=== PATIENT | female | born 1950 | race Caucasian/White ===

== ENCOUNTER 2019-02-12 05:45 | Inpatient (IN) | payer MEDICARE, OTHER ==
[~2019-02-12 05:45] MED LIST: Buffered Lidocaine 1% SYRIN* 1 ML/SYRINGE INTRADERM ONE
--- OUTSIDE RECORDS SUMMARY | 2019-02-12 05:49 | XMS REPORT | Continuity of Care Document ---
:1950 External Reference #:[id number] Author Name iLz Powell N.P. 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 Problems Provider Date Factor V Leiden mutation Andres Hui M.D.,FACP Onset: 01/20/2016 Benign essential hypertension Argentina Simental M.D., FACP Onset: 05/31/2010 Type 2 diabetes mellitus Argentina Simental M.D., FACP Onset: 08/06/2011 Hyperlipidemia Argentina Simental M.D., FACP Onset: 05/31/2010 Hypothyroidism Argentina Simental M.D., FACP Onset: 05/31/2010 Hereditary spherocytosis Argentina Simental M.D., FACP Onset: 05/31/2010 Malignant tumor of thyroid gland Argentina Simental M.D., FACP Onset: 07/03/2010 Social History Type Date Description Comments Sex Unknown Tobacco Use Start: Unknown Never Smoked Cigarettes ETOH Use Rarely consumes alcohol Tobacco Use Start: Unknown Patient has never smoked Recreational Drug Use Denies Drug Use Smoking Status Reviewed: 02/02/19 Patient has never smoked Exercise Type/Frequency Exercises sporadically Limited by back pain Allergies, Adverse Reactions, Alerts Active Allergies Reaction Severity Comments Date NKDA 12/08/2018 Heparin BLOOD CLOTS Moderate 05/23/2010 Sutures VICRIL WONT HEAL Severe 05/23/2010 Medications Active Medications SIG Qnty Indications Ordering Date Provider Tlso Brace When out of bed Vassilios 12/24/2018 after surgery MD Irene Tramadol HCL 1 tablet four 120tabs Misael Delaney NP 08/09/2018 50mg Tablets times daily as needed pain Cyclobenzaprine HCL 1 by mouth 90tabs Liz Sehrry, 07/22/2018 5mg every 8 hours N.P. Tablets as needed muscle spasms Metaxalone take 1 tablet 3 90tabs Misael Delaney NP 05/29/2018 800mg Tablets times a day as needed Irbesartan Take One Tablet 90tabs I10 Liz Sherry, 10/18/2017 75mg Tablets By Mouth Every N.P. Morning Simvastatin take 1 tablet 90tabs E78.00 Liz Sherry, 07/03/2017 40mg Tablets at bedtime N.P. Flector apply 1 patch 60units M54.5 Liz Moraesana, 09/27/2016 1.3% Patches twice a day N.P. Zolpidem Tartrate ER take one tablet 30tabs G47.00 Liz Sherry, 2016 6.25mg by mouth at N.P. Tablets ER bedtime as needed for sleep; maximum daily dose = 1 Voltaren apply to 500gm Liz Moraesana, 05/10/2016 1% Gel affected area N.P. four times daily Warfarin Sodium Take Two 180tabs Liz Moraesana, 07/27/2014 4mg Tablets Tablets By N.P. Mouth Every Day Or as Directed Nasonex 2 sprays to 1units 786.2 Argentina Simetnal, 01/28/2012 50mcg/Act each nostril M.D., FACP Suspension once daily prn Venlafaxine HCL ER Take One 90caps Liz Sherry, 10/10/2010 150mg Capsule By N.P. Caps ER 24HR Mouth Every Day Vit D qd Unknown 1000Iu Calcium 1 po 60tabs Unknown 500 Tablets Synthroid 1 by mouth Rahat Goldberg MD 200mcg Tablets every day Magnesium 1 by mouth Unknown 400mg Tablets every day Multivitamin Adult 1 by mouth Unknown Tablets every day Folic Acid Take One Tablet 90tabs Liz Varn, 1mg Tablets By Mouth Every N.P. Day Immunizations CPT Code Status Date Vaccine Reaction Lot # [id number] Given 12/28/2018 Influenza Virus Vaccine, Quadrivalent, Split, Preservative Free 71435 Given 10/01/2017 Tetanus And Diptheria (Td) No immediate a110a For Adult Use Preservative reaction..jh Free 86657 Given 02/05/2017 Influenza Virus Vaccine, Quadrivalent, Split, Preservative Free 68181 Given 09/27/2016 Pneumonia Vaccine no immediate reaction [id number] noted .... hh Q2038 Given 12/26/2015 Fluzone Vaccine 01652 Given 11/23/2014 Pneumococcal Conjugate [id number] Vaccine 13 Valent For Intramuscular Use Q2037 Given 12/01/2011 Fluvirin Im 3Yrs And Older 21993 Given 12/29/2008 Zoster (Zostavax) 93937 Given 10/27/2007 Tdap - Tetanus/Diptheria/Acellular Pertussis 34835 Given 10/27/2007 Tdap - Tetanus/Diptheria/Acellular Pertussis 70598 Given 01/09/2007 Influenza Virus 3Yrs & Over 57311 Given 01/09/2007 Influenza Virus 3Yrs & Over Vital Signs Date Vital Result Comment 02/02/2019 3:40pm Height 60 inches 5'0" Weight 182.00 lb Heart Rate 90 /min BP Systolic Sitting 124 mmHg BP Diastolic Sitting 79 mmHg O2 % BldC Oximetry 98 % BMI (Body Mass Index) 35.5 kg/m2 12/24/2018 2:00pm Height 60 inches 5'0" Weight 180.00 lb BP Systolic 124 mmHg BP Diastolic 76 mmHg Pain Level 3 BMI (Body Mass Index) 35.1 kg/m2 Results Test Acquired Facility Test Result H/L Range Note Date Laboratory test 12/12/2018 [facility] Vitamin B12 406 pg/mL Normal 180-914 [address] [place] [address] [phone] Protein 12/12/2018 [facility] Total 6.3 g/dL 6.3 - 7.[address] Protein([place] [address] ) [phone] Albumin 3.2 g/dL Abnormal 3.4-4.7 Alpha-1 Globulin 0.3 g/dL 0.1-0.3 Alpha-2 Globulin 1.1 g/dL Abnormal 0.6-1.0 Beta Globulin 1.1 g/dL 0.7-1.2 Gamma Globulin 0.7 g/dL 0.6-1.6 Albumin/Globulin Ratio 1.01 Impression See Comment 2 Laboratory test 12/12/2018 [facility] TSH (Thyroid 0.01 Low 0.34-5.[address] Stim Horm) mcIU/[place] [address] [phone] Hemoglobin A1c (Glyco HGB) 5.7 % High 4.0-5.6 3 Laboratory test 12/12/2018 [facility] RBC Folic See Comment [address] [place] [address] [phone] CBC Auto Diff 10/03/2018 [facility] White Blood 8.8 10^3/uL Normal 3.5-[address] Count 0.8 [place] [address] [phone] Red Blood Count 4.33 10^6/uL Normal 3.70-4.87 Hemoglobin 13.8 g/dL Normal 12.0-16.0 Hematocrit 39 % Normal 35-47 Mean Corpuscular Volume 90 fL Normal 80-97 Mean Corpuscular Hemoglobin 32 pg High 27-31 Mean Corpuscular HGB Conc 36 g/dL Normal 31-36 Red Cell Distribution Width 14 % Normal 10-15 Platelet Count 364 10^3/uL Normal 150-450 Mean Platelet Volume 9.2 fL Normal 7.4-10.4 Abs Neutrophils 5.3 10^3/uL Normal 1.5-7.7 Abs Lymphocytes 2.2 10^3/uL Normal 1.0-4.8 Abs Monocytes 1.0 10^3/uL High 0-0.8 Abs Eosinophils 0.2 10^3/uL Normal 0-0.6 Abs Basophils 0.1 10^3/uL Normal 0-0.2 Abs Nucleated RBC 0.0 10^3/uL Granulocyte % 60.2 % Lymphocyte % 25.1 % Monocyte % 11.2 % Eosinophil % 2.4 % Basophil % 1.1 % Nucleated Red Blood Cells % 0.1 Inr/Protime 10/03/2018 [facility] Inr 3.63 High 0.82-1.[address] [place] [address] [phone] Comp Metabolic 10/03/2018 [facility] Sodium 137 mmol/L Normal 135-145 Panel [address] [place] [address] [phone] Chloride 107 mmol/L Normal 101-111 Co2 Carbon Dioxide 23 mmol/L Normal 22-32 Glucose 106 mg/dL High 70-100 Blood Urea Nitrogen 20 mg/dL Normal 6-24 Creatinine 0.67 mg/dL Normal 0.51-0.95 BUN/Creatinine Ratio 29.9 High 8-20 Calcium 8.2 mg/dL Low 8.6-10.3 Total Protein 6.3 g/dL Low 6.4-8.9 Albumin 3.9 g/dL Normal 3.2-5.2 Globulin 2.4 g/dL Normal 2-4 Albumin/Globulin Ratio 1.6 Normal 1-3 Total Bilirubin 0.20 mg/dL Normal 0.2-1.0 Alkaline Phosphatase 106 U/L High 34-104 Alt 27 U/L Normal 7-52 Egfr Non- 87.0 >60 Egfr 105.3 >60 6 Potassium TNP mmol/L 3.5-5.0 7 Anion Gap 7 mmol/L Normal 2-11 Ast TNP U/L 13-39 8 1 Normal Range 180 to 914 Indeterminate Range 145 to 180 Deficient Range <145 2 RESULT: No apparent monoclonal protein on serum electrophoresis. Test Performed by: [facility] [address] [id number] Pulverizer Feeder: Joaquin Lee M.D. Ph.D.; CLIA# [id number] 3 Therapeutic target for the treatment of diabetes mellitus patients is <7% HBA1C, and in selective patients <6.0%. Please refer to [place] [employer] Association diabetic care guidelines for further information. 4 TESTS RESULT FLAG UNITS REFERENCE INTERVAL Folate, RBC Folate, Hemolysate 472.7 ng/mL Not Estab. Hematocrit 39.8 % No patient age and/or gender provided or "N" placed in gender box Age Male Female 0 - 7 days 31.9 - 57.2 31.9 - 57.2 8 - 30 days 30.7 - 53.7 30.7 - 53.7 31 - 90 days 26.6 - 41.0 26.6 - 41.0 91 days - 11 months 31.0 - 41.0 31.0 - 41.0 1 - 7 years 32.4 - 43.3 32.4 - 43.3 8 - 12 years 34.8 - 45.8 34.8 - 45.8 >12 years 37.5 - 51.0 34.0 - 46.6 Folate, RBC 1188 ng/mL >498 Test Report Date: 12/14/[address] [facility] [address] [address] Dir: Teressa Lovell MD For inquiries, the physician may contact Branch: [phone] Lab: [phone] 5 Standard intensity warfarin therapeutic range: 2.0-3.0 High intensity warfarin therapeutic range: 2.5-3.5 6 Because ethnic data is not always readily available, this report includes an eGFR for both -Americans and non- Americans. The National Kidney Disease Education Program (NKDEP) does not endorse the use of the MDRD equation for patients that are not between the ages of 18 and 70, are , have extremes of body size, muscle mass, or nutritional status, or are non- or non-. According to the National Kidney Foundation, irrespective of diagnosis, the stage of the disease is based on the level of kidney function: Stage Description GFR(mL/min/1.73 m(2)) 1 Kidney damage with normal or decreased GFR 90 2 Kidney damage with mild decrease in GFR 60-89 3 Moderate decrease in GFR 30-59 4 Severe decrease in GFR 15-29 5 Kidney failure <15 (or dialysis) 7 Specimen Hemolyzed. Result may not be valid. Unable to report test result due to hemolysis. 8 Unable to report test result due to hemolysis. Procedures Date Code Description Status 02/02/2019 14367 EKG Tracing & Interpretation Completed 07/14/2018 [id number] Bone Mineral Density Test Completed 06/13/2018 [id number] Mammogram Completed 11/11/2017 [id number] Mammogram Completed 07/27/2017 [id number] Diabetic Retinal Eye Exam Completed 11/06/2016 [id number] Mammogram Completed 07/27/2015 [id number] Mammogram Completed 12/20/2014 [id number] Mammogram Completed 12/14/2014 [id number] Mammogram Completed 12/10/2013 [id number] Mammogram Completed 12/02/2012 [id number] Mammogram Completed 12/02/2012 [id number] Bone Mineral Density Test Completed 05/30/2012 [id number] Mammogram Completed 10/31/2011 [id number] Mammogram Completed 05/30/2010 [id number] Mammogram Completed 10/28/2008 [id number] Mammogram Completed 10/30/2007 [id number] Bone Mineral Density Test Completed Medical Devices Description No Information Available Encounters Type Date Location Provider Dx Diagnosis Office Visit 12/08/2018 [facility] Hussein Trniidad, E11.40 Type 2 diabetes 11:15a [facility] mellitus with diabetic neuropathy, unsp M48.062 Spinal stenosis, lumbar region with neurogenic claudication G56.01 Carpal tunnel syndrome, right upper limb Assessments Date Code Description Provider 02/02/2019 Z01.818 Encounter for other preprocedural Liz Varn, N.P. examination 02/02/2019 M48.062 Spinal stenosis, lumbar region with Liz Varn, N.P. neurogenic claudication 02/02/2019 E11.40 Type 2 diabetes mellitus with diabetic Liz Varn, N.P. neuropathy, unspecified 02/02/2019 I10 Essential (primary) hypertension Liz Varn, N.P. 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 factors 02/02/2019 E03.9 Hypothyroidism, unspecified Liz Varn, N.P. 01/22/2019 M48.062 Spinal stenosis, lumbar region with Jil Bonilla MD neurogenic claudication 01/22/2019 M47.896 Other spondylosis, lumbar region Jil Bonilla MD 01/22/2019 M43.16 Spondylolisthesis, lumbar region Jil Bonilla MD 12/24/2018 M48.062 Spinal stenosis, lumbar region with Jil Bonilla MD neurogenic claudication 12/24/2018 M47.896 Other spondylosis, lumbar region Jil Bonilla MD 12/24/2018 M43.16 Spondylolisthesis, lumbar region Jil Bonilla MD 12/08/2018 E11.40 Type 2 diabetes mellitus with diabetic Hussein Trinidad MD neuropathy, unspecified 12/08/2018 M48.062 Spinal stenosis, lumbar region with Hussein Trinidad MD neurogenic claudication 12/08/2018 G56.01 Carpal tunnel syndrome, right upper limb Hussein Trinidad MD Plan of Treatment Future Appointment(s):05/18/2019 1:30 pm - MARIJA Bailon at [facility]03/16/2019 1:00 pm - MARIJA Bailon at [facility]02/23/2019 1:30 pm - MARIJA Bailon at [facility] 7:30 am - MARIJA Bailon at [facility]02/12/2019 7:30 am - Jil Bonilla MD at [facility]06/16/2019 10: 45 am - Hussein Trinidad MD at [facility] Pujvms8602/02/2019 - Liz Powell N.P.Z01.818 Encounter for other preprocedural examinationComments:I am ordering some routine preoperative lab work. The office will contact you with your results. Please follow with Dr Collado regarding your anticoagulation.M48.062 Spinal stenosis, lumbar region with neurogenic hftkjgeofcbbT47.40 Type 2 diabetes mellitus with diabetic neuropathy, oizxfyalpfcW00 Essential (primary) vltsjkksnftrA89.2 Hereditary deficiency of other clotting tenjpixC22.9 Hypothyroidism, unspecified Functional Status Description No Information Available Mental Status Description No Information Available Referrals Description No Information Available
--- OUTSIDE RECORDS SUMMARY | 2019-02-12 05:49 | XMS REPORT | Continuity of Care Document ---
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 Tablets [...] daily Warfarin Sodium Take Two 180tabs Liz Sherry, 07/27/2014 4mg Tablets Tablets By N.P. Mouth Every Day Or as Directed Nasonex 2 sprays to 1units 786.2 Argentina Simental, 01/28/2012 50mcg/Act each nostril M.DJorge, FACP Suspension once daily prn Venlafaxine HCL [...] Code Status Date Vaccine Reaction Lot # [id number] Given 12/28/2018 Influenza Virus Vaccine, Quadrivalent, Split, Preservative Free 98071 Given 10/01/2017 Tetanus And Diptheria (Td) No immediate a110a For Adult Use Preservative reaction..jh Free 01410 Given 02/05/2017 Influenza Virus Vaccine, Quadrivalent, Split, Preservative Free 47080 Given 09/27/2016 Pneumonia Vaccine no immediate reaction [id number] noted .... hh Q2038 Given 12/26/2015 Fluzone Vaccine 20238 Given 11/23/2014 Pneumococcal Conjugate [id number] Vaccine 13 Valent For Intramuscular Use Q2037 Given 12/01/2011 Fluvirin Im 3Yrs And Older 88698 Given 12/29/2008 Zoster (Zostavax) 46002 Given 10/27/2007 Tdap - Tetanus/Diptheria/Acellular Pertussis 89083 Given 10/27/2007 Tdap - Tetanus/Diptheria/Acellular Pertussis 65859 Given 01/09/2007 Influenza Virus 3Yrs & Over 90643 Given 01/09/2007 Influenza Virus 3Yrs & Over Vital Signs Date Vital Result Comment 02/06/2019 3:18pm Height 62 inches 5'2" Weight 190.00 lb Heart Rate 84 /min BP Systolic 160 mmHg BP Diastolic 80 mmHg BMI (Body Mass Index) 34.7 kg/m2 02/02/2019 3:40pm Height 60 inches 5'0" Weight 182.00 lb Heart Rate 90 /min BP Systolic Sitting 124 mmHg BP Diastolic Sitting 79 mmHg O2 % BldC Oximetry 98 % BMI (Body Mass Index) 35.5 kg/m2 Results Test Acquired Date Facility Test Result H/L Range Note CBC Auto 02/03/2019 [facility] White Blood 9.3 10^3/uL Normal 3.5-10.[address] [place] [address] [phone] Red Blood Count 4.49 10^6/uL Normal 3.70-4.87 Hemoglobin 14.0 g/dL Normal 12.0-16.0 Hematocrit 40 % Normal 35-47 Mean Corpuscular Volume 90 fL Normal 80-97 Mean Corpuscular Hemoglobin 31 pg Normal 27-31 Mean Corpuscular HGB Conc 35 g/dL Normal 31-36 Red Cell Distribution Width 15 % Normal 10-15 Platelet Count 351 10^3/uL Normal 150-450 Mean Platelet Volume 10.3 fL Normal 7.4-10.4 Abs Neutrophils 5.6 10^3/uL Normal 1.5-7.7 Abs Lymphocytes 2.5 10^3/uL Normal 1.0-4.8 Abs Monocytes 0.9 10^3/uL High 0-0.8 Abs Eosinophils 0.3 10^3/uL Normal 0-0.6 Abs Basophils 0.1 10^3/uL Normal 0-0.2 Abs Nucleated RBC 0.0 10^3/uL Granulocyte % 59.9 % Lymphocyte % 26.5 % Monocyte % 9.2 % Eosinophil % 3.2 % Basophil % 1.2 % Nucleated Red Blood Cells % 0.2 Comp Metabolic 02/03/2019 [facility] Sodium 140 mmol/L Normal 135-[address] [place] [address] [phone] Potassium 4.6 mmol/L Normal 3.5-5.0 Chloride 104 mmol/L Normal 101-111 Co2 Carbon Dioxide 30 mmol/L Normal 22-32 Anion Gap 6 mmol/L Normal 2-11 Glucose 80 mg/dL Normal 70-100 Blood Urea Nitrogen 15 mg/dL Normal 6-24 Creatinine 0.67 mg/dL Normal 0.51-0.95 BUN/Creatinine Ratio 22.4 High 8-20 Calcium 9.0 mg/dL Normal 8.6-10.3 Total Protein 6.4 g/dL Normal 6.4-8.9 Albumin 4.1 g/dL Normal 3.2-5.2 Globulin 2.3 g/dL Normal 2-4 Albumin/Globulin Ratio 1.8 Normal 1-3 Total Bilirubin 0.30 mg/dL Normal 0.2-1.0 Alkaline Phosphatase 101 U/L Normal 34-104 Alt 18 U/L Normal 7-52 Ast 19 U/L Normal 13-39 Egfr Non- 87.0 >60 Egfr 105.3 >60 1 Urine Microalbumin 02/03/2019 [facility] Ur Microalbumin 113.3 mg/L Random [address] (mg/L) [place] [address] [phone] Urine Creatinine 51.21 mg/dL Urine Microalbumin/Creatinine 221.2 High <31 Urinalysis Profile 02/03/2019 [facility] Urine Color Yellow [address] [place], [place] [address] [phone] Urine Appearance Cloudy Urine Specific [place] 1.015 Normal 1.010-1.030 Urine pH 6.0 Normal 5-9 Urine Urobilinogen Negative Negative Urine Ketones Negative Negative Urine Protein Negative Negative Urine Leukocytes 1+ Abnormal Negative Urine Blood 2+ Abnormal Negative Urine Nitrite Negative Negative Urine Bilirubin Negative Negative Urine Glucose Negative Negative Urine White Blood Cell 3+(>20/hpf) Abnormal Absent Urine Red Blood Cell 3+(>10/hpf) Abnormal Absent Urine Bacteria Absent Absent Urine Squamous Epithelial Cell Present Abnormal Absent Urine Culture And 02/03/2019 [facility] Urine SEE RESULT [address] Culture BELOW [place], [place] [address] [phone] Laboratory test 12/12/2018 [facility] Vitamin B12 406 pg/mL Normal 180- [address] [place], [place] [address] [phone] Protein 12/12/2018 [facility] Total 6.3 g/dL 6.[address] Protein([place]) [place] [address] 7.9 [phone] Albumin 3.2 g/dL Abnormal 3.4-4.7 Alpha-1 Globulin 0.3 g/dL 0.1-0.3 Alpha-2 Globulin 1.1 g/dL Abnormal 0.6-1.0 Beta Globulin 1.1 g/dL 0.7-1.2 Gamma Globulin 0.7 g/dL 0.6-1.6 Albumin/Globulin Ratio 1.01 Impression See Comment 4 Laboratory test 12/12/2018 [facility] TSH (Thyroid 0.01 Low 0.34-5.[address] Stim Horm) mcIU/mL [place], [place] [address] [phone] Hemoglobin A1c (Glyco HGB) 5.7 % High 4.0-5.6 5 Laboratory test 12/12/2018 [facility] RBC Folic See Comment [address] [place] [address] [phone] CBC Auto Diff 10/03/2018 [facility] White Blood 8.8 10^3/uL Normal 3.5-[address] Count 0.8 [place] [address] [phone] Red Blood Count 4.33 10^6/uL Normal 3.70-4.87 [...] Red Blood Cells % 0.1 Inr/Protime 10/03/2018 [facility] Inr 3.63 High 0.82-1.[address] [place] [address] [phone] Comp Metabolic 10/03/2018 [facility] Sodium 137 mmol/L Normal 135-145 Panel [address] [place] [address] [phone] Chloride 107 mmol/L Normal 101-111 Co2 Carbon [...] Egfr Non- 87.0 >60 Egfr 105.3 >60 8 Potassium TNP mmol/L 3.5-5.0 9 Anion Gap 7 mmol/L Normal 2-11 Ast TNP U/L 13-39 10 1 Because ethnic data is not always readily [...] 15-29 5 Kidney failure <15 (or dialysis) 2 SEE RESULT BELOW Name: XIN KERNS : [address]: Liz Powell NP Acct: [id number] Unit: [id number] AGE: 68 Location: LAB Re02/03/19 SEX: F Status: REG REF SPEC: [id number] DARRYL: 02/03/19-[address]: Liz Powell NP REQ: [id number] RECD: 02/03/19979 STATUS:COMP _ SOURCE: URINE SPDESC: ORDERED: Urine Culture Procedure Result Reported Site Urine Culture Final 02/04/19- 1237 ML No Growth (<1,000 CFU/mL) * ML - Main Lab . END OF REPORT DEPARTMENT OF PATHOLOGY, [address] [place] [address] Baltazar Goodrich M.D. Director IA # [id number] 3 Normal Range 180 to 914 Indeterminate Range 145 to 180 Deficient Range <145 4 RESULT: No apparent monoclonal protein on serum electrophoresis. Test Performed by: [facility] [place] [address] Artificial Plastic Eye Maker: Joaquin Lee M.D. Ph.D.; CLIA# [id number] 5 Therapeutic target for the treatment of diabetes mellitus patients is <7% HBA1C, and in selective patients <6.0%. Please refer to [place] Diabetes Association diabetic care guidelines for further information. 6 TESTS RESULT FLAG UNITS REFERENCE INTERVAL Folate, [...] ng/mL >498 Test Report Date: 12/14/[address] [facility] [address] [address] Dir: Teressa Lovell MD For inquiries, the physician may contact Branch: [phone] Lab: [phone] 7 Standard intensity warfarin therapeutic range: 2.0-3.0 High intensity warfarin therapeutic range: 2.5-3.5 8 Because ethnic data is not always readily [...] 15-29 5 Kidney failure <15 (or dialysis) 9 Specimen Hemolyzed. Result may not be valid. Unable to report test result due to hemolysis. 10 Unable to report test result due to hemolysis. Procedures Date Code Description Status 02/02/2019 55674 EKG Tracing & Interpretation Completed 07/14/2018 [id number] Bone Mineral Density Test Completed 06/13/2018 [id number] Mammogram Completed 11/11/2017 [id number] Mammogram Completed 07/27/2017 [id number] Diabetic Retinal Eye Exam Completed 11/06/2016 [id number] Mammogram Completed 07/27/2015 [id number] Mammogram Completed 12/20/2014 [id number] Mammogram Completed 12/14/2014 [id number] Mammogram Completed 12/10/2013 [id number] Mammogram Completed 12/02/2012 [id number] Mammogram Completed 12/02/2012 [id number] Bone Mineral Density Test Completed 05/30/2012 [id number] Mammogram Completed 10/31/2011 [id number] Mammogram Completed 05/30/2010 [id number] Mammogram Completed 10/28/2008 [id number] Mammogram Completed 10/30/2007 [id number] Bone Mineral Density Test Completed Medical Devices Description No Information Available Encounters Type Date Location Provider Dx Diagnosis Office Visit 12/08/2018 [facility] Hussein Trinidad, E11.40 Type 2 diabetes 11:15a [facility] Brilliandeer Lopper mellitus with diabetic neuropathy, unsp M48.062 Spinal stenosis, lumbar region with neurogenic claudication G56.01 Carpal tunnel syndrome, right upper limb Assessments Date Code Description Provider 02/06/2019 M48.062 Spinal stenosis, lumbar region with MARIJA Bailon neurogenic claudication 02/02/2019 Z01.818 Encounter for other preprocedural Liz [...] - MARIJA Bailon at [facility]03/16/2019 1:00 pm - MARIJA Bailon at [facility]02/23/2019 1:30 pm - MARIJA Bailon at [facility] 7:30 am - MARIJA Bailon at [facility]02/12/2019 7:30 am - Jil Bonilla MD at [facility]06/16/2019 10: 45 am - Hussein Trinidad MD at [facility] Dzbusb7502/06/2019 - Cheryl Sanabria, PAM48.062 Spinal stenosis, lumbar region with neurogenic claudication Functional Status Description No Information Available Mental Status Description No Information Available Referrals Description No Information Available
[2019-02-12] MEDS ORDERED: Acetaminophen TAB* 325 MG PO ONE (06:00)
[2019-02-12] MEDS ORDERED: Lactated Ringers 1000 ML Bag* 1,000 ML IV SCH ×2 (06:00→17:00)
[2019-02-12] MEDS ORDERED: ceFAZolin 2 GM in NS PREMIX(*) 2 GM/100 ML BAG IVPB ONE ×2 (06:29→12:05)
[2019-02-12] MEDS ORDERED: Acetaminophen TAB* 325 MG ONE ×2 (06:29→06:30)
[2019-02-12] MEDS ORDERED: Bupivacaine 0.25% EPI 200,000* 30 ML SDV ONE (06:46)
[2019-02-12] MEDS ORDERED: Bacitracin INJECTION* 50,000 UNITS ONE ×3 (06:46→15:15)
[2019-02-12] MEDS ORDERED: Propofol* 10 MG/ML 20 ML BTL ONE ×4 (07:14→14:41)
[2019-02-12] MEDS ORDERED: Midazolam* 1 MG/ML 2 ML VIAL (2 MG) ONE (07:14)
[2019-02-12] MEDS ORDERED: fentaNYL* 50 MCG/ML 5 ML VIAL (250 MCG VIAL) ONE (07:14)
[2019-02-12] MEDS ORDERED: Rocuronium* 10 MG/ML VIAL ONE ×2 (07:14)
[2019-02-12] MEDS ORDERED: Lidocaine 2% PF* 10 ML AMP ONE (07:14)
[2019-02-12] MEDS ORDERED: Remifentanil* 2 MG VIAL ONE (07:17)
[2019-02-12] MEDS ORDERED: Propofol* 500 MG/50 ML BTL ONE ×2 (07:17→09:41)
[2019-02-12] MEDS ORDERED: Artificial Tear OPHTH.OINT* 3.5 GM ONE (08:02)
[2019-02-12] MEDS ORDERED: Dexamethasone IV* 4 MG/ML 1 ML (4 MG) ONE (08:51)
[2019-02-12] MEDS ORDERED: Phenylephrine 40 MCG/ML SYRINGE ONE (08:51)
[2019-02-12] MEDS ORDERED: HYDROmorphone INJ1* 1 MG/ML SYRINGE ONE ×4 (08:59→16:49)
[2019-02-12] MEDS ORDERED: EPHEDrine (Pressors)* 50 MG/ML VIAL ONE (09:18)
[2019-02-12] MEDS ORDERED: diPHENhydraMINE IV* 50 MG/ML 1 ml VIAL (BENADRYL) IV PRN (09:33)
[2019-02-12] MEDS ORDERED: Naloxone* 0.4 MG/ML 1 ML VIAL IV PRN (09:33)
[2019-02-12] MEDS ORDERED: PROCHLORPERAZINE INJ 5 MG/ML 2 ML VIAL IV PRN (09:33)
[2019-02-12] MEDS ORDERED: Ondansetron INJ* 2 MG/ML VIAL IV PRN (09:33)
[2019-02-12] MEDS ORDERED: KETAMINE HCL* 50 MG/ML 10 ML VIAL ONE (12:21)
[2019-02-12] MEDS ORDERED: Metoprolol Tartrate IV* 1 MG/ML 5 ML VIAL ONE ×3 (12:36→16:27)
[2019-02-12] MEDS ORDERED: Propofol* 1,000 MG/100 ML BTL ONE (12:45)
[2019-02-12] MEDS ORDERED: Ondansetron INJ* 2 MG/ML VIAL ONE (15:09)
[2019-02-12] MEDS ORDERED: oxyCODONE TAB* 5 MG TAB PO PRN (16:01)
[2019-02-12] MEDS ORDERED: Acetaminophen IV 1GM/100ML * 1,000 MG/100 ML VIAL IVPB ONE (16:32)
[2019-02-12] MEDS ORDERED: Acetaminophen IV 1GM/100ML * 100 ML ONE (16:38)
[2019-02-12] MEDS ORDERED: hydrALAZINE IV* 20 MG/ML VIAL ONE (16:39)
[2019-02-12] MEDS ORDERED: fentaNYL* 50 MCG/ML 2 ML VIAL (100 MCG VIAL) ONE (16:48)
[2019-02-12] MEDS: fentaNYL* 50 MCG/ML 2 ML VIAL (100 MCG VIAL) IV PRN ×4 (16:50→17:40)
[2019-02-12] MEDS: HYDROmorphone INJ1* 1 MG/ML SYRINGE IV PRN ×5 (16:55→17:30)
[2019-02-12] MEDS ORDERED: Cyclobenzaprine TAB* 10 MG PO PRN (17:59)
[2019-02-12] MEDS ORDERED: DICLOFENAC 1.3% TRANSDERM PRN (18:44)
[2019-02-12 19:04] LABS: ABS Basophils 0.1 10^3/ul (0-0.2); ABS Lymphocytes 1.5 10^3/ul (1.0-4.8); ABS Monocytes 0.6 10^3/ul (0-0.8); ABS Neutrophils 17.9 10^3/ul (1.5-7.7); Hematocrit 41 % (35-47); Hemoglobin 14.3 g/dL (12.0-16.0); Lymphocyte % 7.5 %; Mean Corpuscular HGB Conc 35 g/dL (31-36); Mean Corpuscular Hemoglobin 31 pg (27-31); Mean Corpuscular Volume 91 fL (80-97); Mean Platelet Volume 9.1 fL (7.4-10.4); Platelet Count 321 10^3/uL (150-450); Red Blood Count 4.55 10^6 /uL (3.70-4.87); Red Cell Distribution Width 15 % (10-15)
[2019-02-12] MEDS: HYDROcodone/ACETAMIN 5-325 MG* 1 TAB PO PRN (19:40)
[2019-02-12] MEDS ORDERED: traMADol TAB* 50 MG PO SCH (21:00)
[2019-02-12] MEDS: Gabapentin CAP(*) 300 MG PO SCH (21:06)
[2019-02-12] MEDS: Metaxalone TAB* 800 MG PO SCH (21:06)
[2019-02-12] MEDS: Calcium Carbonate CHEW TAB* 500 MG (TUMS) PO SCH (21:07)
--- NOTE | 2019-02-12 21:18 | CONS ---
CC: Dr. Jil Bonilla; Dr. Allyson Snowden; Dr. Merry Daniel * CONSULTATION REPORT: DATE OF CONSULT: 02/12/19. CONSULTING PROVIDER: Dr. Jil Bonilla. MY ATTENDING WHILE IN THE HOSPITAL: Dr. Allyson Snowden. PRIMARY CARE PROVIDER: Dr. Merry Daniel. REASON FOR CONSULT: Co-management of comorbid medical conditions. HISTORY OF PRESENT ILLNESS: Ms. Kerns is a 68-year-old female with past medical history significant for factor V Leiden with mesenteric artery occlusion requiring bowel resection in 2006, spherocytosis as a child requiring splenectomy and heparin-induced thrombocytopenia antibody positive, as well as diet-controlled diabetes and hypertension. The patient today underwent an extensive neurosurgery procedure in her lumbar spine due to multilevel degenerative disk disease and stenosis. The patient has failed conservative modalities. The patient was seen when she had reached the floor postoperatively. The patient denies any pain. At this time, there is tightness in her back. The patient has no numbness or tingling in her lower extremities. No loss of bowel or bladder control. No radiation of pain down her legs. No fever, chills, chest pain, shortness of breath, nausea, vomiting, dizziness, change in her vision, or abdominal pain. The patient preoperatively had no sick contact, no fever or chills. No shortness of breath lying flat or with activity. The patient was significantly hampered in her activity level by her back pain. The patient had no abdominal pain or diarrhea preoperatively either. The patient had recently been transitioned from Coumadin to a Lovenox bridge in preparation of her surgery. The patient took the last dose of her Coumadin on Saturday evening, 02/10/19, due to gum bleeding that she developed that night. She states she does not usually get gum bleeding while she is only on Coumadin. The patient had an INR, which was 1.15 on 02/09/19. The patient had a platelet count, which was 351 on 02/03/19. The patient took her last dose of Coumadin 1 week ago. The patient last took her her irbesartan on Saturday morning. The patient took her normally scheduled meds this morning as well. The patient is overall feeling well and somewhat confused in the postoperative setting. 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 PAST SURGICAL HISTORY: Splenectomy, colectomy, thyroidectomy, laparotomy with right-sided salpingo-oophorectomy. FAMILY HISTORY: The patient's father of prostate cancer. The patient's mother of COPD. The patient had a brother who of testicular cancer. The patient has a brother who has spherocytosis and had a CABG and glioblastoma. Another sister is alive and well. The patient has 1 daughter with spherocytosis, 1 daughter with factor V Leiden, 1 daughter who is healthy, and 2 sons who were healthy. The patient has grandchildren who are alive and well. SOCIAL HISTORY: The patient has never smoked. The patient only drinks occasional garcia colada. The patient denies any illicit drug use. 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 The patient's surrogate decision maker would be her son who is present with her at the time of the interview. REVIEW OF SYSTEMS: A 14-point review of systems was reviewed and was negative except as above in the HPI. PHYSICAL EXAM: Vital Signs: Temperature 97.6, pulse rate 96, respiratory rate 18, oxygen saturation 94% on room air, blood pressure 113/63. HEENT: Head normocephalic, atraumatic. Sclerae anicteric. No conjunctival injection. Nasal mucosa dry. Oral mucosa dry. No oropharyngeal erythema, discharge, or exudate. Neck: Supple and nontender. No lymphadenopathy. No carotid bruits auscultated. No JVD. Cardiac: Regular rate and rhythm. No clicks, murmurs, gallops or rubs. Pulses are 2+ in the bilateral dorsalis pedis, posterior tibialis, and radial areas. Respiratory: Clear to auscultation bilaterally. No wheezes or rhonchi. Good air exchange bilaterally. Abdomen: Soft, nontender , and nondistended. Bowel sounds present and normoactive in all 4 quadrants. No hepatosplenomegaly. No abdominal bruits auscultated. No hepatojugular reflux. Genitourinary: No suprapubic or CVA tenderness. Skin: Erythema on the face with edema around the eyelids. Neuro: Cranial nerves II through XII are intact. Strength 5/5 in the bilateral upper extremities. Strength 4/5 with dorsiflexion in the left lower extremity, otherwise preserved. No sensory deficits. Psychiatric: Very pleasant and cooperative. DIAGNOSTIC STUDIES/LAB DATA: Laboratory data preoperatively, white blood cell count 9.3, hemoglobin 14.0, platelet count 351. INR 1.15, APTT 41.5. Sodium 140, potassium 4.6, chloride 104, carbon dioxide 30, anion gap 6, BUN 15, creatinine 0.67, glucose 80, calcium 9.0. Bilirubin 0.3, AST 19, ALT 18, alkaline phosphatase 101. Albumin 4.1, globulin 2.3. TSH 0.01, thyroxine 10.6 , T3 9.5. Urine shows 1+ leukocyte esterase, 3+ red blood cells, absent bacteria. ASSESSMENT AND PLAN/IMPRESSION: The patient is a 68-year-old female with past medical history significant for factor V Leiden, multiple blood clots, heparin- induced thrombocytopenia, hereditary spherocytosis, hypertension, hyperlipidemia , diabetes, who is currently status post extensive lumbar fusion and is doing well postoperatively. 1. Postoperative state. Management per Neurosurgery. TLSO brace, out of bed, pain control. PT/OT. The patient should be mobilizing after surgery. The patient will be monitored for urinary retention and postoperative ileus. 2. Factor V Leiden. Status post multiple blood clots. A plan has been set up by the patient's flake or shred roll operator prior to her admission which involves resuming full dose Lovenox as soon as possible after surgery and her Coumadin directly after surgery; however, given the patient's mucosal bleeding 2 days prior to surgery, this raises a concern for possible thrombocytopenia, but Lovenox is less likely to cause heparin-induced thrombocytopenia and she has taken it before without issues. We will recheck a platelet count tonight and in the morning. If the patient is thrombocytopenic, the patient will be reassessed for NOAC sooner rather than later. This should be done outpatient as well per the previous recommendation of Hematology. 3. Heparin-induced thrombocytopenia. Management as above. Monitor platelet count closely. 4. Hereditary spherocytosis. The patient is not anemic and this has not been an issue for her through her adult life. 5. Diabetes mellitus type 2 and this is diet controlled. Check fingersticks in the postoperative period with a fingerstick goal of less than 180. This may require insulin. 6. Hypertension. Hold the patient's losartan given the long period of the patient's surgery and resume when indicated for high blood pressure. Continue taking fluids at this time. 7. Hyperlipidemia. Continue the patient's statin. 8. Hypothyroidism. The patient's TSH is significantly depressed. The patient should follow up with her outpatient provider for treatment of likely hyperthyroidism. This would not be adjusted at this time. 9. FEN: The patient will have a regular restricted diet and oral fluids. 10. Disposition: Per Neurosurgery. TIME SPENT: Approximately 60 minutes was spent on this consultation, 30 of which was spent [id number] with the patient obtaining history and physical and discussing treatment plan. MARIJA MONACO [id number]/[facility] #: [id number] CHIQUIS
[2019-02-13] MEDS: HYDROcodone/ACETAMIN 5-325 MG* 1 TAB PO PRN ×3 (01:11→10:49)
--- NOTE | 2019-02-13 03:17 | OP ---
DATE OF OPERATION: 02/12/19 - ROOM #331 DATE OF : 46 SURGEON: Jil Bonilla MD OUTER DIAMETER TECHNICIAN: Cheryl Sanabria, surgical PA. The case was done with the assistance of surgical PA because of the complexity of the case. ANESTHESIA: General. PRE-OP DIAGNOSES: 1. Degenerative disk disease. 2. L4-5 spondylolisthesis. 3. Lumbar stenosis. POST-OP DIAGNOSES: 1. Degenerative disk disease. 2. L4-5 spondylolisthesis. 3. Lumbar stenosis. OPERATIVE PROCEDURE: The patient underwent a left L3-4 and L4-5 MIS-TLIF with decompressive laminectomies L3-4 and L4-5 with foraminotomies with PEEK expandable interbody cages, iliac crest bone graft through a separate incision, DBX, pedicle screws with intraoperative navigation and intraoperative electrophysiological monitoring. ESTIMATED BLOOD LOSS: 45 cc. COMPLICATIONS: None. INDICATIONS: The patient is a very pleasant 68-year-old female with history of multiple medical comorbidities including spherocytosis, splenectomy, factor V Leiden with history of bowel resection, who presented with axial back pain, lower extremity radiculopathy, and left foot drop, and MRI finding consistent with severe degenerative disk disease, L4-5 grade 1 spondylolisthesis, and significant stenosis. After failing conservative treatment modalities, she was offered the option of surgical intervention after explaining the expectations, limitations, possible complications to the patient and her family including her son with complications including, but not limited to bleeding, infection, risk of injury to adjacent structures, coma, paralysis, , need for additional procedures, anesthesia risks, stroke, blindness, cancer, instability, hardware failure, adjacent level disease, pseudoarthrosis, spinal fluid leak, need for additional procedures, loss of bladder and bowel control, injury to intraabdominal contents, worsening of spinal deformity, need for additional operations, need for tracheostomy and gastrostomy, need for prolonged ICU stay, prolonged hospitalizations, and prolonged rehabilitation, deep venous thrombosis , pulmonary embolism, thrombosis of bowel or embolic episodes, anesthesia risks. The patient was agreeable to proceed with surgery. Informed consent was obtained. The patient had clearance from Dr. Collado in terms of ability to stop her Coumadin. She also understood that with this procedure we will try to address the most important generators of pain and her left foot drop and that she may need to have additional procedures in the future. She also understood that the operative plan may be modified according to the intraoperative findings and conditions and that the case may be abandoned or done in more than 1 stages. The patient understood that her condition may not improve and in fact may get worse after surgery and that she may need to have additional procedure in the future. She understood the risks of associated with her Leiden factor disease as well as possibility of need for additional procedures. DESCRIPTION OF PROCEDURE: The patient was brought to the operating room and was placed under general anesthesia by the anesthesia team. She was carefully positioned prone on the Ludwig table and all bony prominences were meticulously padded. Her skin was prepped and draped in a standard fashion. After appropriate surgical pause and patient identification, a small incision over the right iliac crest was performed with #10 surgical knife after infiltrating the skin with local anesthetic. The incision was carried out with Bovie cautery and with the assistance of Jamshidi needle and wire. A Corex trocar was inserted and iliac crest bone graft was harvested to be used for the arthrodesis part of the procedure. Through the same incision, the pin for the navigation star was secured and intraoperative O-arm imaging was obtained. The trajectories of the pedicle screws of L3, L4, and L5 were marked on the skin and the skin was infiltrated with local anesthetic and #10 surgical blade was used to incise the skin. Incision was carried down with Bovie cautery and the pedicles of L5, L4, and L3 bilaterally were cannulated with use of high-speed drill, awl-tip tap, and Medtronic Voyager ATS screws were inserted. Then attention was brought to perform the interbody insertion. With the use of dilator with the assistance of stereotactic navigation, the METRx tubular retractor was inserted over the left L3-4 facet and L3 bebo- lamina. Intraoperative microscope was brought into the field, and after exposing the lamina and the facet, a medial facetectomy and hemilaminectomy was performed as well as contralateral laminectomy in order to afford the the patient an adequate decompression with high-speed drill, Kerrison punches. Bone from the laminectomy part of this procedure was saved for use in the arthrodesis part of the procedure. Then disk space was readily identified after skeletonizing the superior and medial aspect of the pedicle, and after gently retracting the thecal sac and the nerve root, a diskectomy and preparation of the disk space was performed after incising the annulus fibrosus with #15 surgical blade. The preparation of the disk space was performed with a series of dilators, pituitary rongeurs, curettes, and Kerrison punches. A Medtronic Elevate expandable cage was inserted at the 3-4 disk space after being filled with a mixture of iliac crest bone graft, locally harvested bone graft as well as DBX after the disk space was filled with same mixture of graft material. After the insertion of the cage and confirmation of meticulous hemostasis and copious irrigation and after expansion of the interbody cage, the tubular retractor was gently removed as the thecal sac and the nerve roots were found to be free of any pressure phenomenon. Then attention was brought to perform a TLIF at L4-5 disk space. The tubular METRx retractor was reinserted in a similar manner and the procedure was repeated for the L4-5 disk space. Of note, significant posterior osteophyte was encountered as expected from preoperative imaging and large parts of the osteophyte was saved for the arthrodesis part of the procedure along with material from the laminectomy. The laminectomy was extended towards the right side, the contralateral side, and excellent decompression of the thecal sac was identified. Then, the thecal sac was gently retracted medially as well as the nerve root. A foraminotomy of the L5 nerve root on the left was performed. The disk space was again prepared and an Elevate expandable cage with up to 15 degrees of lordosis was inserted. The mixture of the bone graft was used for grafting in the disk space as well as in the interbody cage. After the insertion of the interbody cage, electrophysiological monitor was stable, but after expansion of the interbody cage, a decrease in the SSEPs was noted. Intraoperative check was performed and the patient was given steroids, increased blood pressure, checked for technical difficulties, etc., as well as decrease of the expansion of the cage. This had as result the return the SSEPs to baseline on the left side, although the right side was still somewhat decreased. After obtaining intraoperative O-arm imaging, which confirmed excellent placement of all hardware, a contralateral extended decompression was performed. Significant amount of hypertrophied ligamentum flavum was encountered, that was compressing the right side of the thecal sac. This was gently dissected free and resected with Kerrison punches while extended foraminotomies were performed at the L4-5 and L5-S1 foramina. During the decompression, the SSEPs were then back to normal, where intraoperative electrophysiological monitoring was stable otherwise. After confirmation with meticulous hemostasis and copious irrigation and after confirmation of the thecal sac and the nerve roots were free of any pressure phenomenon, the tubular retractor was gently removed and the dorsal fascia was approximated with interrupted 0 Vicryl suture. Then, attention was brought to insert two cobalt-chrome rods through the same stab wound incisions and secured in place with screw head caps. Another O-arm imaging confirmed excellent placement of all hardware, rastafarian of the disk space as well as rastafarian of the normal anatomy and alignment of the lumbar spine. Intraoperative electrophysiological monitoring was at the baseline at that time and it was elected to continue with closure. The extenders of the screws were then removed and the dorsal fascial defects were approximated with 0 Vicryl sutures while the subcutaneous tissue was approximated with 0 catgut sutures and the skin was then approximated with 0 Prolene sutures in interrupted mattress fashion. Of note, the patient had reported that she had allergy to VICRYL, but she reported in the previous surgeries deeper Vicryl sutures were not a problem for her, but the subcutaneous Vicryl sutures seemed to be prone to infection. At the end of the procedure, all counts were reported to be correct. The patient remained hemodynamically stable throughout the case. Intraoperative electrophysiological monitoring was stable in the beginning and at the end of the procedure at the patient's baseline. During closure, all counts were reported to be correct. The patient was then turned supine, was extubated, and was transferred to recovery in excellent condition. [id number]/[facility] #: [id number] CHIQUIS
[2019-02-13] MEDS ORDERED: Levothyroxine TAB* 100 MCG TAB PO SCH (06:00)
[2019-02-13 08:17] LABS: Hematocrit 37 % (35-47); Hemoglobin 12.8 g/dL (12.0-16.0); Mean Corpuscular HGB Conc 35 g/dL (31-36); Mean Corpuscular Hemoglobin 31 pg (27-31); Mean Corpuscular Volume 90 fL (80-97); Mean Platelet Volume 9.3 fL (7.4-10.4); Platelet Count 294 10^3/uL (150-450); Red Blood Count 4.13 10^6 /uL (3.70-4.87); Red Cell Distribution Width 14 % (10-15)
[2019-02-13 08:24] LABS: BUN/Creatinine Ratio 23.1 (8-20); Calcium 8.2 mg/dL (8.6-10.3); EGFR Non-African American 90.1 (>60); Potassium 3.5 mmol/L (3.5-5.0)
[2019-02-13 08:51] LABS: ABS Basophils 0.1 10^3/ul (0-0.2); ABS Lymphocytes 2.2 10^3/ul (1.0-4.8); ABS Monocytes 1.7 10^3/ul (0-0.8); ABS Neutrophils 11.1 10^3/ul (1.5-7.7); Eosinophil % 0.1 %; Lymphocyte % 14.5 %; Nucleated Red Blood Cells % 0.1
[2019-02-13] MEDS ORDERED: Folic Acid TAB* 1 MG PO SCH (09:00)
[2019-02-13] MEDS ORDERED: Enoxaparin(*) 100 MG/ML SYR SUBCUT SCH (09:00)
[2019-02-13] MEDS ORDERED: Cholecalciferol TAB* 1000 UNITS PO SCH (09:00)
[2019-02-13] MEDS ORDERED: Magnesium Oxide TAB* 400 MG PO SCH (09:00)
[2019-02-13] MEDS ORDERED: Venlafaxine EXT RELEASE CAP* 75 MG PO SCH (09:00)
[2019-02-13] MEDS: Calcium Carbonate CHEW TAB* 500 MG (TUMS) PO SCH (09:12)
[2019-02-13] MEDS: Gabapentin CAP(*) 300 MG PO SCH ×2 (09:12→13:37)
[2019-02-13] MEDS: Metaxalone TAB* 800 MG PO SCH (09:13)
--- NOTE | 2019-02-13 09:16 | PN ---
Progress Note - Progress Note Date of Service: 02/13/19 SOAP: Subjective: [] 68 y/o female post left TLIF of L3/L4, L4/L5 POD #1, she doing well. She has been able to ambulate with walker overnight. Patient reports improvement with the sensation n her left leg, but feel the weakness in her foot is unchanged. The pain has been well controlled with Maxwell and Flexeril. Patient has been able to tolerate orals, has been able to void, pass flatulence but has not had BM. she has been stable overnight and feels ready to go home. Objective: [] Initial Vitals Temp Pulse Resp BP Pulse Ox 97.6 F 77 18 145/63 99 02/09/19 13:39 02/09/19 13:39 02/09/19 13:39 02/09/19 13:39 02/09/19 13:39 General: patient laying in bed comfortable no NAD. Neuro: A&O x3 CN II -XII grossly intact, EOM intact, no deficits with visual red Upper extremity motor strength 5/5 throughout Lower motor strength Right 5/5 through out, Left 5/5 with hip flexion and extension, left EHL 4+/5, plantar flexion 4+/5 Sensation intact through out with dull touch Derm. 3 incisions C/D/I retention sutures intact, noticeable drainage on dressing. there is some mild swelling at superior end of left incision. Assessment: [] 68 y/o female post left TLIF at L4/L5 doing well after surgery, strength in left foot unchanged, but sensation has improved. Plan: [] 1) Follow X rays this morning 2) walk with PT 3) Pain control as needed 4) discharge planning.
--- NOTE | 2019-02-13 10:48 | PN ---
Subjective Date of Service: 02/13/19 Interval History: Patient is feeling well today except for non-radicular pain in her back. Patient has decreased paresthesia in her B/L LE. Patient denies CP, SOB, dizziness, N/V, abdominal pain, dysuria, anuria, or obstipation. Patient is anxious to go home. Family History: Unchanged from Admission Social History: Unchanged from Admission Past Medical History: Unchanged from Admission Objective Active Medications: Hydrocodone Bitart/Acetaminophen (Lavalette 5-325 Tab*) 2 tab PO Q4H PRN PRN Reason: PAIN - MODERATE Last Admin: 02/13/19 05:52 Dose: 2 tab Atorvastatin Calcium (Lipitor*) 20 mg PO QPM [facility] [place] Calcium Carbonate (Tums*) 500 mg PO BID [facility] Last Admin: 02/13/19 09:12 Dose: 500 mg Cholecalciferol (Vitamin D Tab*) 1,000 units PO QAM [facility] [place] Last Admin: 02/13/19 09:12 Dose: 1,000 units Cyclobenzaprine HCl (Flexeril Tab*) 10 mg PO TID PRN PRN Reason: SPASMS - BACK Last Admin: 02/13/19 00:00 Dose: 10 mg Diclofenac Epolamine (Flector 1.3% Patch (Nf)) 1 patch TRANSDERM BID PRN; Protocol PRN Reason: PAIN Folic Acid (Folvite Tab*) 1 mg PO DAILY [facility] [place] Last Admin: 02/13/19 09:12 Dose: 1 mg Gabapentin (Neurontin Cap(*)) 300 mg PO QID [facility] [place] Last Admin: 02/13/19 09:12 Dose: 300 mg Lactated Ringer's (Lactated Ringers 1000 Ml Bag*) 1,000 mls @ 75 mls/hr IV .per rate [facility] [place] Last Admin: 02/12/19 18:38 Dose: 75 mls/hr Levothyroxine Sodium (Synthroid Tab*) 200 mcg PO QAM@0600 [facility] [place] Last Admin: 02/13/19 05:53 Dose: 200 mcg Magnesium Oxide (Magox 400 Tab*) 400 mg PO QAM [facility] [place] Last Admin: 02/13/19 09:12 Dose: 400 mg Metaxalone (Skelaxin Tab*) 800 mg PO TID [facility] [place] Last Admin: 02/13/19 09:13 Dose: 800 mg Venlafaxine HCl (Effexor Xr Cap*) 150 mg PO QAM [facility] [place] Last Admin: 02/13/19 09:12 Dose: 150 mg Vital Signs - 8 hr 02/13/19 02/13/19 02/13/19 02:45 03:04 03:37 Temperature 98.2 F Pulse Rate 98 Respiratory 16 16 16 Rate Blood Pressure 126/54 (mmHg) O2 Sat by Pulse 98 Oximetry 02/13/19 02/13/19 02/13/19 05:52 07:55 08:59 Temperature 98.9 F Pulse Rate 95 Respiratory 17 18 16 Rate Blood Pressure 122/53 (mmHg) O2 Sat by Pulse 93 Oximetry 02/13/19 02/13/19 02/13/19 09:01 09:12 09:13 Temperature Pulse Rate Respiratory 18 16 18 Rate Blood Pressure (mmHg) O2 Sat by Pulse Oximetry Oxygen Devices in Use Now: None Appearance: Patient is a 68yo female who appears stated age and is sitting in the bed in [facility]. Eyes: No Scleral Icterus, PERRLA Ears/Nose/Mouth/Throat: NL Teeth, Lips, Gums, Clear Oropharnyx, Mucous Membranes Moist Neck: NL Appearance and Movements; NL JVP, Trachea Midline Respiratory: Symmetrical Chest Expansion and Respiratory Effort, Clear to Auscultation Cardiovascular: NL Sounds; No Murmurs; No JVD, RRR, No Edema Abdominal: NL Sounds; No Tenderness; No Distention, No Hepatosplenomegaly Lymphatic: No Cervical Adenopathy Extremities: No Edema, No Clubbing, Cyanosis Skin: No Nodules or Sclerosis, - - Back incisions covered and not visualized. No Petichiae or mucosal bleeding. Neurological: Alert and Oriented x 3, - - CN II-XII intact. 3/5 strength in LLE with dorsiflexion. Result Diagrams: 02/13/19 07:58 02/13/19 07:58 Assess/Plan/Problems-Billing Assessment: Patient is a 68yo female with a PMH for FVL, S/P Mesenteric Ischemia and Colectomy, Hereditary Spherocytosis S/P Splenectomy, Spinal stenosis, here S/P extensive lumbar spinal surgery who is doing well post-op. - Patient Problems (1) Factor V Leiden Current Visit: Yes Status: Acute Code(s): D68.51 - ACTIVATED PROTEIN C RESISTANCE SNOMED Code(s): 853752642 Comment: - High risk for clots post-op. - Disussed with Hematology and Neurosurgery - Plan for POD #2 starting low dose Lovenox, then Full dose Lovenox POD #5 with coumadin and INR check POD #11 with possible discontinuation of Lovenox. - Encourage Ambulation. - No signs of Clot or HIT. (2) Post-operative state Current Visit: Yes Status: Acute Code(s): Z98.890 - OTHER SPECIFIED POSTPROCEDURAL STATES SNOMED Code(s): 75708292 Comment: - Doing well - Management Per Neurosurgery. (3) DM II (diabetes mellitus, type II), controlled Current Visit: Yes Status: Acute Code(s): E11.9 - TYPE 2 DIABETES MELLITUS WITHOUT COMPLICATIONS SNOMED Code(s): 18261344 Comment: - Diet controlled - On No Medications. (4) HTN (hypertension) Current Visit: Yes Status: Acute Code(s): I10 - ESSENTIAL (PRIMARY) HYPERTENSION SNOMED Code(s): 81829492 Comment: - Normotensive - Resume Irbesartan tomorrow. (5) HLD (hyperlipidemia) Current Visit: Yes Status: Acute Code(s): E78.5 - HYPERLIPIDEMIA, UNSPECIFIED SNOMED Code(s): 59052682 Comment: - Statin (6) DVT prophylaxis Current Visit: Yes Status: Acute Code(s): Z29.9 - ENCOUNTER FOR PROPHYLACTIC MEASURES, UNSPECIFIED SNOMED Code(s): 536693737 Comment: - Lovenox. (7) Full code status Current Visit: Yes Status: Acute Code(s): Z78.9 - OTHER SPECIFIED HEALTH STATUS SNOMED Code(s): 556297662 Status and Disposition: Dispostion per NS. Thank you for this consultation on this very interesting patient.
[2019-02-13 11:50] VITALS: BP 125/50
[2019-02-13] MEDS ORDERED: Warfarin TAB(*) 3 MG PO SCH (17:00)
[2019-02-13] MEDS ORDERED: Atorvastatin* 20 MG TAB PO SCH (18:00)
--- NOTE | 2019-02-15 13:37 | DS ---
DISCHARGE SUMMARY: DATE OF ADMISSION: 02/12/19 DATE OF DISCHARGE: 02/13/19 ATTENDING PHYSICIAN: Dr. Bonilla.* (DICTATED BY MARIJA HURST) PREOPERATIVE DIAGNOSES: 1. Degenerative disk disease. 2. L4-5 spondylolisthesis. 3. Lumbar stenosis. POSTOPERATIVE DIAGNOSES: 1. Degenerative disk disease. 2. L4-5 spondylolisthesis. 3. Lumbar stenosis. CONDITION ON DISCHARGE: Good. PLACE OF DISCHARGE: Home. HOSPITAL COURSE: This patient is a very pleasant 68-year-old female with history of multiple medical comorbidities including spherocytosis, splenectomy, factor V Leiden and history of bowel resection, who presented with axial low back pain, lower extremity radiculopathy, and left footdrop. She had MRI findings consistent with severe degenerative disk disease with a grade 1 L4-L5 spondylolisthesis and significant stenosis. After failing conservative treatment modalities, she was offered the option of surgical intervention in the form of a left-sided TLIF at L3- L4 and L4-L5. The patient underwent the procedure and tolerated well, was sent to PACU, shortly after was placed in short-stay unit for 24-hour observation. The patient did well. Pain was well controlled. She was able to ambulate with minimal assistance, tolerated orals. The next day, the patient was doing really well and was recommended for discharge. At that time, she was given discharge instructions, which included no heavy lifting, bending or twisting. No driving. Avoid pools and hot tubs. Follow up with primary care in 1 week. Follow up with neurosurgery team in 1 week. She was discharged with pain medication and she understood the instructions. Thank you for allowing me to be a part of this patient's care. MARIJA HURST [id number]/[facility] #: [id number] [place]
== END 2019-02-13 14:06 | disposition home or self-care (01) | DRG 460 ==
LOC: AA 05:45 → SSU 18:18
PROVIDERS: ADMIT Neurological Surgery; ATTEND Neurological Surgery
PROC: 0SB20ZZ Excision of Lumbar Vertebral Disc, Open Approach (ICD-10-PCS; 2019-02-12)
PROC: 0QB20ZZ Excision of Right Pelvic Bone, Open Approach (ICD-10-PCS; 2019-02-12)
PROC: 0SG10AJ Fusion of 2 or more Lumbar Vertebral Joints with Interbody Fusion Device, Posterior Approach, Anterior Column, Open Approach (ICD-10-PCS; principal; 2019-02-12 07:30)
DX: M51.06 Intervertebral disc disorders with myelopathy, lumbar region (principal); D68.51 Activated protein C resistance; K91.2 Postsurgical malabsorption, not elsewhere classified; M51.16 Intervertebral disc disorders with radiculopathy, lumbar region; M48.062 Spinal stenosis, lumbar region with neurogenic claudication; M21.372 Foot drop, left foot; D75.82 Heparin induced thrombocytopenia (HIT); M25.78 Osteophyte, vertebrae; D58.0 Hereditary spherocytosis; M43.16 Spondylolisthesis, lumbar region; E11.9 Type 2 diabetes mellitus without complications; I10 Essential (primary) hypertension; E78.5 Hyperlipidemia, unspecified; E03.9 Hypothyroidism, unspecified; Z85.850 Personal history of malignant neoplasm of thyroid; Z80.42 Family history of malignant neoplasm of prostate; Z80.43 Family history of malignant neoplasm of testis; Z82.49 Family history of ischemic heart disease and other diseases of the circulatory system; Z84.89 Family history of other specified conditions; Z82.5 Family history of asthma and other chronic lower respiratory diseases; Z79.01 Long term (current) use of anticoagulants; Z79.899 Other long term (current) drug therapy; Z88.8 Allergy status to other drugs, medicaments and biological substances; Z91.048 Other nonmedicinal substance allergy status; Z90.81 Acquired absence of spleen
CPT/HCPCS: 36415; 72100; 76000; 80048; 85025; A9270-GY; C1713; C1776; G8978-GP-CJ; G8979-GP-CJ; G8980-GP-CJ; J0360; J0690; J1100; J1170; J2001; J2250; J2405; J2704; J3010; J3490

== ENCOUNTER 2021-01-10 10:27 | Inpatient (IN) ==
[2021-01-10] MEDS ORDERED: Lactated Ringers 1000 ml BAG 1,000 ML IV ONE ×3 (11:33→12:30)
[2021-01-10] MEDS ORDERED: Piperacillin/Tazobac ADVAN 3.375 GM in NS 0.9% 100 ml BAG 100 ML IV ONE (11:34)
[2021-01-10 12:14] LABS: Hematocrit 38 % (35-47); Mean Corpuscular HGB Conc 34 g/dL (31-36); Mean Corpuscular Hemoglobin 31 pg (27-31); Mean Corpuscular Volume 92 fL (80-97); Mean Platelet Volume 9.5 fL (7.4-10.4); Platelet Count 304 10^3/uL (150-450); Red Blood Count 4.15 10^6 /uL (3.70-4.87); Red Cell Distribution Width 15 % (10-15); White Blood Count 36.4 10^3/uL (3.5-10.8)
[2021-01-10 12:18] LABS: ABS Lymphocytes 0.5 10^3/ul (1.0-4.8); ABS Monocytes 1.8 10^3/ul (0-0.8); ABS Nucleated RBC 0.1 10^3/ul; Eosinophil % 0.1 %; Lymphocyte % 1.4 %; Nucleated Red Blood Cells % 0.1
[2021-01-10 12:22] LABS: INR 5.63 (0.86-1.15)
[2021-01-10 12:26] LABS: ALT 25 U/L (7-52); AST 37 U/L (13-39); Albumin 3.7 g/dL (3.2-5.2); Albumin/Globulin Ratio 1.3 (1-3); Alkaline Phosphatase 74 U/L (35-149); Anion Gap 17 mmol/L (2-11); Blood Urea Nitrogen 30 mg/dL (6-24); C Reactive Protein 170.17 mg/L (<8.01); CO2 Carbon Dioxide 17 mmol/L (22-32); Calcium 7.8 mg/dL (8.6-10.3); Chloride 102 mmol/L (101-111); Globulin 2.9 g/dL (2-4); Glucose 117 mg/dL (70-100); Magnesium 1.3 mg/dL (1.9-2.7); Potassium 3.6 mmol/L (3.5-5.0); Sodium 136 mmol/L (135-145); Total Protein 6.6 g/dL (6.4-8.9)
[2021-01-10] MEDS ORDERED: Magnesium Sulfate 2 gm BAG 2 GM/50 ML BAG IVPB ONE ×2 (12:32→18:10)
[2021-01-10 12:33] LABS: Troponin I 0.03 ng/mL (<0.03)
[2021-01-10 12:41] LABS: RBC Morphology Normal (Normal)
[2021-01-10 13:44] LABS: Rapid COVID-19 Molecular Undetected (Undetected)
[2021-01-10] MEDS ORDERED: Norepinephrine 16MCG/ML IVPRE 4,000 MCG/250 ML BAG IV ONE (13:46)
[2021-01-10] MEDS: Norepinephrine 16MCG/ML IVPRE 4,000 MCG/250 ML BAG IV SCH (13:55)
[2021-01-10 15:03] LABS: PCO2 Arterial 31 mmHg (35-45); PO2 Arterial 103 mmHg (80-100)
[2021-01-10] MEDS ORDERED: Prothrombin Complex Conc. DOSE = Units Factor IX (nine) IV SLOW PU ONE (15:30)
[2021-01-10] MEDS ORDERED: Phytonadione IV (Adult) 10 MG in NS 0.9% 50 ML 50 ML IV ONE (15:34)
[2021-01-10] MEDS ORDERED: Albuterol HFA INHALER 8 gm MDI INH PRN (15:43)
[2021-01-10] MEDS ORDERED: Iohexol 180 (CONTRAST) 10 ML SDV IV ONE ×2 (15:52→16:55)
[2021-01-10] MEDS ORDERED: Iohexol 180 (CONTRAST) 20 ML SDV IV ONE (15:52)
[2021-01-10] MEDS ORDERED: Ondansetron 4 mg VIAL 2 MG/ML 2 ml VIAL IV PRN (15:55)
[2021-01-10] MEDS ORDERED: Zosyn per Pharmacy NOTE FOLLOW UP SCH ×2 (16:00→17:00)
[2021-01-10] MEDS ORDERED: Etomidate 20 mg/10 ml 2 MG/ML 10 ml VIAL ONE (16:00)
[2021-01-10] MEDS ORDERED: Ketamine HCL 50 mg/ml 10 ml VIAL (500 MG) ONE (16:00)
[2021-01-10] MEDS ORDERED: Rocuronium 50 mg VIAL 10 mg/ml 5 ml VIAL (50 mg) ONE (16:00)
[2021-01-10] MEDS ORDERED: Phenylephrine 40 mcg/mL 10mL (400mcg) SYRINGE ONE (16:00)
[2021-01-10] MEDS ORDERED: fentaNYL 100 mcg/2 ml 50 MCG/ML VIAL ONE ×2 (16:00→18:12)
[2021-01-10] MEDS ORDERED: Midazolam 5 mg/5 ml VIAL 1 mg/ml 5 ml VIAL (5 mg) ONE (16:00)
[2021-01-10] MEDS ORDERED: ZOSYN 3.375 GM Q12H per EXTENDED INFUSION IV SCH (18:00)
[2021-01-10] MEDS ORDERED: Acetaminophen IV 1 GM/100ML 100 ML IV PRN (18:10)
[2021-01-10] MEDS ORDERED: Dextrose 50% Syringe 50 ml 25 GM/50 ML SYRINGE IV PUSH PRN (18:14)
[2021-01-10] MEDS ORDERED: Dextrose 50% Syringe 50 ml 25 GM/50 ML SYRINGE ONE (18:15)
[2021-01-10] MEDS: fentaNYL 100 mcg/2 ml 50 MCG/ML VIAL IV SLOW PU PRN (18:15)
[2021-01-10] MEDS: Pantoprazole VIAL 40 MG VIAL IV SCH (18:32)
[2021-01-10] MEDS: Chlorhexidine MOUTHWASH 0.12% 15 ML UDC SWISH SPIT SCH ×2 (18:32→23:47)
[2021-01-10] MEDS: Propofol 10 mg/ml 100 ML BTL 100 ML IV SCH (18:33)
[2021-01-10] MEDS: Acetaminophen IV 1 GM/100ML 100 ML IV PRN (18:33)
[2021-01-10] MEDS ORDERED: Dextrose 50% Syringe 50 ml 25 GM/50 ML SYRINGE IV PUSH ONE (19:00)
[2021-01-10] MEDS: PHENYLEPHRINE DRIP IVPREMIX 50 MG/250 ML BAG IV SCH (19:49)
[2021-01-10] MEDS ORDERED: fentaNYL INFUSION 50 mcg/mL VL 2,500 MCG/50 ML VIAL IV SCH (20:00)
[2021-01-10 20:07] LABS: Hematocrit 36 % (35-47); Hemoglobin 12.3 g/dL (12.0-16.0); Mean Corpuscular HGB Conc 35 g/dL (31-36); Mean Corpuscular Hemoglobin 32 pg (27-31); Mean Corpuscular Volume 93 fL (80-97); Mean Platelet Volume 9.1 fL (7.4-10.4); Platelet Count 142 10^3/uL (150-450); Red Blood Count 3.85 10^6 /uL (3.70-4.87); Red Cell Distribution Width 15 % (10-15); White Blood Count 20.9 10^3/uL (3.5-10.8)
[2021-01-10 20:14] LABS: Blood Urea Nitrogen 30 mg/dL (6-24); Calcium 6.7 mg/dL (8.6-10.3); Chloride 107 mmol/L (101-111); Glucose 123 mg/dL (70-100); Magnesium 1.7 mg/dL (1.9-2.7); Phosphorus 4.4 mg/dL (2.5-5.0); Potassium 3.3 mmol/L (3.5-5.0); Sodium 135 mmol/L (135-145)
[2021-01-10 20:28] LABS: Anion Gap 14 mmol/L (2-11); CO2 Carbon Dioxide 14 mmol/L (22-32)
[2021-01-10 20:29] LABS: Troponin I 0.21 ng/mL (<0.03)
[2021-01-10 20:41] LABS: ABS Lymphocytes 0.4 10^3/ul (1.0-4.8); ABS Monocytes 0.3 10^3/ul (0-0.8); ABS Neutrophils 20.3 10^3/ul (1.5-7.7); Nucleated Red Blood Cells % 0.1
[2021-01-10] MEDS ORDERED: Hydrocortisone INJ 100 MG/2ML 2 ML VIAL IV ONE (22:37)
[2021-01-10] MEDS ORDERED: Vasopressin 100 UNITS in D5W 250 ml BAG 245 ML IV SCH (23:45)
[2021-01-11] MEDS: Norepinephrine 16MCG/ML IVPRE 4,000 MCG/250 ML BAG IV SCH (00:11)
[2021-01-11 00:18] LABS: PCO2 Arterial 33 mmHg (35-45); PO2 Arterial 176 mmHg (80-100)
[2021-01-11 00:25] LABS: INR 1.58 (0.86-1.15)
[2021-01-11 00:34] LABS: Blood Urea Nitrogen 30 mg/dL (6-24); Chloride 110 mmol/L (101-111); Glucose 76 mg/dL (70-100); Potassium 3.4 mmol/L (3.5-5.0); Sodium 138 mmol/L (135-145)
[2021-01-11] MEDS ORDERED: Meropenem 1 GM PREMIX(*) 1 GM/50 ML BAG IV ONE (00:38)
[2021-01-11 00:42] LABS: Anion Gap 15 mmol/L (2-11); CO2 Carbon Dioxide 13 mmol/L (22-32); Calcium 6.4 mg/dL (8.6-10.3)
[2021-01-11 00:45] LABS: Troponin I 0.49 ng/mL (<0.03)
[2021-01-11] MEDS ORDERED: Norepinephrine *QUAD STRENGTH* 16 mg/250 mL NS per protocol IV SCH (01:00)
[2021-01-11] MEDS: Sodium Bicarb 8.4% Vial 50 ML 150 MEQ in D5W 1000 ml BAG 850 ML IV SCH ×3 (01:06→20:53)
[2021-01-11] MEDS: PHENYLEPHRINE DRIP IVPREMIX 50 MG/250 ML BAG IV SCH ×2 (01:13→05:34)
[2021-01-11] MEDS: Propofol 10 mg/ml 100 ML BTL 100 ML IV SCH ×2 (01:14→11:03)
[2021-01-11 01:54] LABS: Magnesium 2.3 mg/dL (1.9-2.7)
[2021-01-11] MEDS: Chlorhexidine MOUTHWASH 0.12% 15 ML UDC SWISH SPIT SCH ×6 (02:20→23:53)
[2021-01-11] MEDS: Acetaminophen IV 1 GM/100ML 100 ML IV PRN ×3 (03:31→15:03)
[2021-01-11 04:09] LABS: Chloride 109 mmol/L (101-111); Sodium 135 mmol/L (135-145)
[2021-01-11 04:15] LABS: Blood Urea Nitrogen 32 mg/dL (6-24); Glucose 120 mg/dL (70-100)
[2021-01-11 04:26] LABS: CO2 Carbon Dioxide 11 mmol/L (22-32)
[2021-01-11 04:36] LABS: Anion Gap 15 mmol/L (2-11)
[2021-01-11 04:52] LABS: PCO2 Arterial 28 mmHg (35-45); PO2 Arterial 159 mmHg (80-100)
[2021-01-11 04:54] LABS: Urine Appearance Turbid; Urine Bilirubin Negative (Negative); Urine Blood 3+ (Negative); Urine Color Amber; Urine Glucose 1+(50 mg/dL) (Negative); Urine Ketones Negative (Negative); Urine Nitrite Negative (Negative); Urine Protein 3+(>=500 mg/dL) (Negative); Urine Specific Gravity 1.017 (1.002-1.030); Urine Urobilinogen Negative (Negative)
[2021-01-11 05:12] LABS: Urine Bacteria 1+ (Absent); Urine Red Blood Cell 3+(>10/hpf) (Absent); Urine Squamous Epithelial Cell Present (Absent); Urine White Blood Cell 3+(>20/hpf) (Absent)
[2021-01-11] MEDS: Levothyroxine 100 MCG/5 ML VIAL IV SCH (05:33)
[2021-01-11] MEDS: Hydrocortisone INJ 100 MG/2ML 2 ML VIAL IV SCH ×3 (05:33→23:48)
[2021-01-11] MEDS ORDERED: Levothyroxine 100 MCG/5 ML VIAL IV SCH (06:00)
[2021-01-11] MEDS ORDERED: Norepinephrine IV 16 MG in NS 0.9% 250 ml 234 ML IV SCH (06:04)
[2021-01-11 06:05] LABS: Hematocrit 37 % (35-47); Hemoglobin 12.7 g/dL (12.0-16.0); Mean Corpuscular HGB Conc 34 g/dL (31-36); Mean Corpuscular Hemoglobin 32 pg (27-31); Mean Corpuscular Volume 92 fL (80-97); Mean Platelet Volume 9.8 fL (7.4-10.4); Platelet Count 159 10^3/uL (150-450); Red Blood Count 4.01 10^6 /uL (3.70-4.87); Red Cell Distribution Width 16 % (10-15); White Blood Count 38.8 10^3/uL (3.5-10.8)
[2021-01-11 06:13] LABS: INR 1.67 (0.86-1.15)
[2021-01-11 07:35] LABS: Potassium, Whole Blood 4.3 mmol/L (3.4-4.5)
[2021-01-11 08:21] LABS: Glucose 158 mg/dL (70-100)
[2021-01-11 08:33] LABS: Toxic Granulation 2+
[2021-01-11 08:34] LABS: ABS Eosinophils 2.4 10^3/ul (0-0.6); ABS Lymphocytes 0.7 10^3/ul (1.0-4.8); ABS Monocytes 0.8 10^3/ul (0-0.8); ABS Neutrophils 34.6 10^3/ul (1.5-7.7); ABS Nucleated RBC 0.1 10^3/ul; Burr Cells 1+; Eosinophil % 6.1 %; Lymphocyte % 1.8 %; Nucleated Red Blood Cells % 0.2
[2021-01-11 08:35] LABS: Polychromasia 1+
[2021-01-11] MEDS ORDERED: Perflutren Lipid Microsphere 3 ML VIAL ONE (08:38)
[2021-01-11] MEDS: Pantoprazole VIAL 40 MG VIAL IV SCH (08:46)
[2021-01-11] MEDS ORDERED: Vasopressin 100 UNITS in D5W 250 ml BAG 245 ML IV SCH (09:15)
[2021-01-11 09:32] LABS: Magnesium 2.2 mg/dL (1.9-2.7)
[2021-01-11 11:46] LABS: PCO2 Arterial 29 mmHg (35-45); PO2 Arterial 108 mmHg (80-100)
[2021-01-11] MEDS ORDERED: Meropenem 1 GM PREMIX 1 GM/50 ML BAG IV SCH (13:00)
[2021-01-11] MEDS: Argatroban 250 MG in NS 0.9% 250 ml 247.5 ML IV SCH (13:07)
[2021-01-11 13:51] LABS: Blood Urea Nitrogen 37 mg/dL (6-24); Chloride 105 mmol/L (101-111); Glucose 200 mg/dL (70-100); Glucose Confirmatory 200 mg/dL (70-100); Sodium 134 mmol/L (135-145)
[2021-01-11 13:53] LABS: Anion Gap 15 mmol/L (2-11); CO2 Carbon Dioxide 14 mmol/L (22-32); Calcium 6.2 mg/dL (8.6-10.3)
[2021-01-11 13:57] LABS: Potassium, Whole Blood 4.2 mmol/L (3.4-4.5)
[2021-01-11] MEDS ORDERED: D10W 1000 ml BAG 1,000 ML IV SCH (14:00)
[2021-01-11 14:39] LABS: Creatine Kinase 886 U/L (10-223)
[2021-01-11] MEDS ORDERED: Zosyn per Pharmacy NOTE FOLLOW UP SCH (15:00)
[2021-01-11 15:27] LABS: Free T4 1.08 ng/dL (0.61-1.12); TSH Ultra Thyroid Stim Horm 0.02 mcIU/mL (0.34-5.60)
[2021-01-11 15:32] LABS: Total T3 26 ng/dL (87-178)
[2021-01-11] MEDS ORDERED: NS 0.9% 1000 ml BAG 1,000 ML IV ONE (15:42)
[2021-01-11 15:51] LABS: Free T4 1.47 ng/dL (0.61-1.12)
[2021-01-11 15:55] LABS: TSH Ultra Thyroid Stim Horm 0.02 mcIU/mL (0.34-5.60)
[2021-01-11 17:35] LABS: Troponin I 14.99 ng/mL (<0.03)
[2021-01-11 19:35] LABS: Total T3 33 ng/dL (87-178)
[2021-01-11 21:11] LABS: Troponin I 15.11 ng/mL (<0.03)
[2021-01-11] MEDS ORDERED: Piperacillin/Tazobac ADVAN 3.375 GM in NS 0.9% 100 ml BAG 100 ML IV ONE (22:00)
[2021-01-12] MEDS: Acetaminophen IV 1 GM/100ML 100 ML IV PRN ×2 (00:08→18:35)
[2021-01-12 00:11] LABS: Troponin I 14.33 ng/mL (<0.03)
[2021-01-12 03:23] LABS: Troponin I 11.44 ng/mL (<0.03)
[2021-01-12] MEDS: ZOSYN 3.375 GM Q12H per EXTENDED INFUSION IV SCH ×2 (03:44→15:49)
[2021-01-12] MEDS: Chlorhexidine MOUTHWASH 0.12% 15 ML UDC SWISH SPIT SCH ×6 (03:49→20:56)
[2021-01-12 06:17] LABS: Magnesium 1.9 mg/dL (1.9-2.7); Phosphorus 4.6 mg/dL (2.5-5.0); Potassium 2.9 mmol/L (3.5-5.0)
[2021-01-12 06:23] LABS: Hematocrit 32 % (35-47); Hemoglobin 11.2 g/dL (12.0-16.0); Mean Corpuscular HGB Conc 35 g/dL (31-36); Mean Corpuscular Hemoglobin 31 pg (27-31); Mean Corpuscular Volume 89 fL (80-97); Mean Platelet Volume 10.1 fL (7.4-10.4); Platelet Count 71 10^3/uL (150-450); Red Blood Count 3.57 10^6 /uL (3.70-4.87); Red Cell Distribution Width 16 % (10-15); White Blood Count 44.2 10^3/uL (3.5-10.8)
[2021-01-12] MEDS: Hydrocortisone INJ 100 MG/2ML 2 ML VIAL IV SCH ×3 (06:26→20:59)
[2021-01-12] MEDS: Levothyroxine 100 MCG/5 ML VIAL IV SCH (06:26)
[2021-01-12 06:29] LABS: Calcium 5.6 mg/dL (8.6-10.3)
[2021-01-12] MEDS: Sodium Bicarb 8.4% Vial 50 ML 150 MEQ in D5W 1000 ml BAG 850 ML IV SCH (06:58)
[2021-01-12] MEDS ORDERED: Potassium Chloride LIQUID 20 MEQ/15 ML LIQUID PEG TUBE ONE (07:36)
[2021-01-12 07:55] LABS: Anisocytosis 1+
[2021-01-12 07:56] LABS: ABS Eosinophils 1.4 10^3/ul (0-0.6); ABS Lymphocytes 0.9 10^3/ul (1.0-4.8); ABS Monocytes 1.7 10^3/ul (0-0.8); ABS Neutrophils 40.1 10^3/ul (1.5-7.7); Dohle Bodies Present; Eosinophil % 3.2 %
[2021-01-12] MEDS: KCL 20 MEQ/100 ML IVPREMIX 20 MEQ/100 ML BAG IV SCH ×2 (08:36→10:52)
[2021-01-12] MEDS: Pantoprazole VIAL 40 MG VIAL IV SCH (08:36)
[2021-01-12] MEDS ORDERED: Furosemide 20 mg/2 ml IV VIAL IV SLOW PU ONE ×2 (10:50→12:05)
[2021-01-12] MEDS ORDERED: Furosemide 40 mg/4 ml IV VIAL IV SLOW PU ONE (12:34)
[2021-01-12] MEDS ORDERED: Bumetanide IV 0.25 MG/ML 4 ml VIAL (1 mg) SLOW PUSH ONE (15:19)
[2021-01-12 20:19] LABS: Hematocrit 34 % (35-47); Hemoglobin 11.8 g/dL (12.0-16.0); Mean Corpuscular HGB Conc 35 g/dL (31-36); Mean Corpuscular Hemoglobin 31 pg (27-31); Mean Corpuscular Volume 89 fL (80-97); Platelet Count 54 10^3/uL (150-450); Red Blood Count 3.79 10^6 /uL (3.70-4.87); Red Cell Distribution Width 16 % (10-15); White Blood Count 56.4 10^3/uL (3.5-10.8)
[2021-01-12 20:35] LABS: Potassium 4.1 mmol/L (3.5-5.0)
[2021-01-12 20:37] LABS: Calcium 5.7 mg/dL (8.6-10.3)
[2021-01-13] MEDS: Sodium Bicarb 8.4% Vial 50 ML 150 MEQ in D5W 1000 ml BAG 850 ML IV SCH ×2 (01:02→14:34)
[2021-01-13] MEDS: Chlorhexidine MOUTHWASH 0.12% 15 ML UDC SWISH SPIT SCH ×6 (01:02→21:01)
[2021-01-13] MEDS: ZOSYN 3.375 GM Q12H per EXTENDED INFUSION IV SCH (03:29)
[2021-01-13] MEDS: Hydrocortisone INJ 100 MG/2ML 2 ML VIAL IV SCH ×3 (06:46→20:00)
[2021-01-13] MEDS: Levothyroxine 100 MCG/5 ML VIAL IV SCH (06:46)
[2021-01-13 06:48] LABS: Blood Urea Nitrogen 61 mg/dL (6-24); CO2 Carbon Dioxide 17 mmol/L (22-32); Chloride 100 mmol/L (101-111); Glucose 167 mg/dL (70-100); Magnesium 2.2 mg/dL (1.9-2.7); Sodium 137 mmol/L (135-145)
[2021-01-13 07:06] LABS: Calcium 5.4 mg/dL (8.6-10.3)
[2021-01-13 07:08] LABS: Anion Gap 20 mmol/L (2-11)
[2021-01-13] MEDS ORDERED: Dexmedetomidine 1,000 MCG in NS 0.9% 250 ml 240 ML IV SCH (08:00)
[2021-01-13 08:21] LABS: Hematocrit 33 % (35-47); Hemoglobin 11.6 g/dL (12.0-16.0); Mean Corpuscular HGB Conc 35 g/dL (31-36); Mean Corpuscular Hemoglobin 32 pg (27-31); Mean Corpuscular Volume 89 fL (80-97); Mean Platelet Volume 11.1 fL (7.4-10.4); Platelet Count 40 10^3/uL (150-450); Red Blood Count 3.66 10^6 /uL (3.70-4.87); Red Cell Distribution Width 16 % (10-15); White Blood Count 51.1 10^3/uL (3.5-10.8)
[2021-01-13 08:24] LABS: RBC Morphology Normal (Normal); Toxic Granulation 2+
[2021-01-13 09:03] LABS: Potassium, Whole Blood 3.4 mmol/L (3.4-4.5)
[2021-01-13] MEDS: Pantoprazole VIAL 40 MG VIAL IV SCH (10:12)
[2021-01-13] MEDS: fentaNYL 100 mcg/2 ml 50 MCG/ML VIAL IV SLOW PU PRN (10:13)
[2021-01-13 14:15] LABS: Potassium 3.3 mmol/L (3.5-5.0)
[2021-01-13 14:18] LABS: Calcium 5.3 mg/dL (8.6-10.3)
[2021-01-13] MEDS ORDERED: Potassium Chloride LIQUID 20 MEQ/15 ML LIQUID PO ONE (14:28)
[2021-01-13] MEDS: cefTRIAXone 2 GM ADDV.VIAL 2 GM in NS 0.9% 100 ml BAG 100 ML IV SCH (15:17)
[2021-01-13] MEDS ORDERED: CALCIUM GLUCONATE 1GM/50ML NS 1 GM/50 ML BAG IV ONE (15:25)
[2021-01-13 16:59] LABS: Total Bilirubin 0.9 mg/dL (0.2-1.0)
[2021-01-13 17:30] LABS: Immature Retic Fraction 0.13; RBC Retic Count 3.73 10^6/uL (3.70-4.87)
[2021-01-13 17:46] LABS: Corrected Retic Count 3.2 % (0.5-1.5); Hematocrit for Retic CNT 34 % (35-47)
[2021-01-13 18:22] LABS: Fibrinogen < 35 mg/dL (110.8-404.3)
[2021-01-13 21:20] LABS: Potassium 3.7 mmol/L (3.5-5.0)
[2021-01-13 21:24] LABS: Calcium 5.5 mg/dL (8.6-10.3)
[2021-01-13 23:45] LABS: Urine Appearance Cloudy; Urine Bilirubin Negative (Negative); Urine Blood 3+ (Negative); Urine Color Yellow; Urine Glucose Negative (Negative); Urine Ketones Negative (Negative); Urine Nitrite Negative (Negative); Urine Protein 2+(100 mg/dL) (Negative); Urine Specific Gravity 1.013 (1.002-1.030); Urine Urobilinogen Negative (Negative)
[2021-01-13 23:50] LABS: Urine Bacteria 1+ (Absent); Urine Red Blood Cell 3+(>10/hpf) (Absent); Urine Squamous Epithelial Cell Present (Absent); Urine White Blood Cell 3+(>20/hpf) (Absent)
[2021-01-14] MEDS: Sodium Bicarb 8.4% Vial 50 ML 150 MEQ in D5W 1000 ml BAG 850 ML IV SCH ×2 (02:02→15:36)
[2021-01-14] MEDS: Chlorhexidine MOUTHWASH 0.12% 15 ML UDC SWISH SPIT SCH ×6 (02:02→20:55)
[2021-01-14] MEDS: Acetaminophen IV 1 GM/100ML 100 ML IV PRN ×3 (02:23→18:28)
[2021-01-14] MEDS ORDERED: Calcium Gluconate 3 GM in NS 0.9% 250 ml 250 ML IV ONE (04:36)
[2021-01-14] MEDS ORDERED: Calcium Gluconate 4 GM in NS 0.9% 250 ml 250 ML IV ONE ×2 (04:48→05:00)
[2021-01-14 05:11] LABS: Hematocrit 31 % (35-47); Mean Corpuscular HGB Conc 35 g/dL (31-36); Mean Corpuscular Hemoglobin 31 pg (27-31); Mean Corpuscular Volume 89 fL (80-97); Mean Platelet Volume 11.6 fL (7.4-10.4); Platelet Count 36 10^3/uL (150-450); Red Blood Count 3.49 10^6 /uL (3.70-4.87); Red Cell Distribution Width 15 % (10-15); White Blood Count 46.1 10^3/uL (3.5-10.8)
[2021-01-14 05:19] LABS: Magnesium 2.2 mg/dL (1.9-2.7); Phosphorus 5.2 mg/dL (2.5-5.0); Potassium 3.6 mmol/L (3.5-5.0)
[2021-01-14 05:21] LABS: Calcium 5.4 mg/dL (8.6-10.3)
[2021-01-14] MEDS: Levothyroxine 100 MCG/5 ML VIAL IV SCH (05:35)
[2021-01-14] MEDS: Pantoprazole VIAL 40 MG VIAL IV SCH (09:46)
[2021-01-14] MEDS: Hydrocortisone INJ 100 MG/2ML 2 ML VIAL IV SCH ×2 (09:47→19:57)
[2021-01-14 11:01] LABS: Calcium 6.5 mg/dL (8.6-10.3); Potassium 3.3 mmol/L (3.5-5.0)
[2021-01-14] MEDS ORDERED: KCL 20 MEQ/100 ML IVPREMIX 20 MEQ/100 ML BAG IV ONE (13:10)
[2021-01-14] MEDS: cefTRIAXone 2 GM ADDV.VIAL 2 GM in NS 0.9% 100 ml BAG 100 ML IV SCH (15:36)
[2021-01-14 18:04] LABS: Calcium 6.3 mg/dL (8.6-10.3)
[2021-01-14] MEDS ORDERED: Calcium Gluconate 2 GM in NS 0.9% 100 ml BAG 100 ML IV ONE (18:04)
[2021-01-14] MEDS: fentaNYL 100 mcg/2 ml 50 MCG/ML VIAL IV SLOW PU PRN (21:34)
[2021-01-15] MEDS: Chlorhexidine MOUTHWASH 0.12% 15 ML UDC SWISH SPIT SCH ×6 (00:30→21:37)
[2021-01-15] MEDS: Acetaminophen IV 1 GM/100ML 100 ML IV PRN (01:52)
[2021-01-15] MEDS: Sodium Bicarb 8.4% Vial 50 ML 150 MEQ in D5W 1000 ml BAG 850 ML IV SCH (03:45)
[2021-01-15 05:22] LABS: Hematocrit 30 % (35-47); Hemoglobin 10.2 g/dL (12.0-16.0); Mean Corpuscular HGB Conc 35 g/dL (31-36); Mean Corpuscular Hemoglobin 31 pg (27-31); Mean Corpuscular Volume 89 fL (80-97); Mean Platelet Volume 13.2 fL (7.4-10.4); Platelet Count 48 10^3/uL (150-450); Red Blood Count 3.31 10^6 /uL (3.70-4.87); Red Cell Distribution Width 15 % (10-15); White Blood Count 41.8 10^3/uL (3.5-10.8)
[2021-01-15 05:40] LABS: Potassium 3.4 mmol/L (3.5-5.0)
[2021-01-15] MEDS: Levothyroxine 100 MCG/5 ML VIAL IV SCH (05:50)
[2021-01-15 05:58] LABS: Calcium 6.2 mg/dL (8.6-10.3)
[2021-01-15] MEDS ORDERED: Calcium Gluconate 4 GM in NS 0.9% 250 ml 250 ML IVPB ONE (06:01)
[2021-01-15] MEDS ORDERED: Potassium Chloride LIQUID 20 MEQ/15 ML LIQUID PO ONE (07:45)
[2021-01-15] MEDS: Pantoprazole VIAL 40 MG VIAL IV SCH (09:08)
[2021-01-15] MEDS: Hydrocortisone INJ 100 MG/2ML 2 ML VIAL IV SCH (09:08)
[2021-01-15] MEDS: cefTRIAXone 2 GM ADDV.VIAL 2 GM in NS 0.9% 100 ml BAG 100 ML IV SCH (15:50)
[2021-01-16] MEDS: fentaNYL 100 mcg/2 ml 50 MCG/ML VIAL IV SLOW PU PRN ×2 (00:54→05:11)
[2021-01-16] MEDS: Chlorhexidine MOUTHWASH 0.12% 15 ML UDC SWISH SPIT SCH ×5 (00:55→18:03)
[2021-01-16] MEDS ORDERED: Lorazepam PYXIS KEY PRN (03:23)
[2021-01-16] MEDS ORDERED: LORazepam 2 mg VIAL 1 ml IV PUSH ONE (03:23)
[2021-01-16] MEDS: Levothyroxine 100 MCG/5 ML VIAL IV SCH (05:11)
[2021-01-16 06:01] LABS: Hematocrit 28 % (35-47); Hemoglobin 9.3 g/dL (12.0-16.0); Mean Corpuscular HGB Conc 33 g/dL (31-36); Mean Corpuscular Hemoglobin 30 pg (27-31); Mean Corpuscular Volume 91 fL (80-97); Platelet Count 63 10^3/uL (150-450); Red Blood Count 3.09 10^6 /uL (3.70-4.87); Red Cell Distribution Width 15 % (10-15); White Blood Count 51.8 10^3/uL (3.5-10.8)
[2021-01-16 06:16] LABS: Calcium 6.7 mg/dL (8.6-10.3); Potassium 3.7 mmol/L (3.5-5.0)
[2021-01-16] MEDS ORDERED: Flumazenil 0.5 mg/5 ml 0.1 MG/ML 5 ml VIAL ONE (07:56)
[2021-01-16] MEDS ORDERED: fentaNYL 100 mcg/2 ml 50 MCG/ML VIAL ONE (07:56)
[2021-01-16] MEDS ORDERED: Midazolam 5 mg/5 ml VIAL 1 mg/ml 5 ml VIAL (5 mg) ONE (07:56)
[2021-01-16] MEDS ORDERED: Naloxone 0.4 mg VIAL 0.4 mg/ml 1 ml VIAL ONE (07:56)
[2021-01-16] MEDS: Pantoprazole VIAL 40 MG VIAL IV SCH (09:48)
[2021-01-16] MEDS: Hydrocortisone INJ 100 MG/2ML 2 ML VIAL IV SCH (09:48)
[2021-01-16 13:56] LABS: ABS Basophils 0.1 10^3/ul (0-0.2); ABS Neutrophils 47.3 10^3/ul (1.5-7.7); ABS Nucleated RBC 0.4 10^3/ul; Lymphocyte % 3.9 %; Nucleated Red Blood Cells % 0.8
[2021-01-16 15:15] LABS: RBC Morphology Normal (Normal)
[2021-01-16] MEDS: Albuterol HFA INHALER 8 gm MDI INH PRN ×3 (16:00→23:35)
[2021-01-16] MEDS: cefTRIAXone 2 GM ADDV.VIAL 2 GM in NS 0.9% 100 ml BAG 100 ML IV SCH (17:14)
[2021-01-16] MEDS: Argatroban 250 MG in NS 0.9% 250 ml 247.5 ML IV SCH (17:15)
[2021-01-16] MEDS: Acetaminophen IV 1 GM/100ML 100 ML IV PRN (20:09)
[2021-01-16] MEDS ORDERED: Morphine 2 MG/ML SYRINGE IV ONE (21:30)
[2021-01-16] MEDS: Morphine 2 MG/ML SYRINGE IV PRN (23:40)
[2021-01-17] MEDS: Morphine 2 MG/ML SYRINGE IV PRN ×6 (02:10→21:04)
[2021-01-17] MEDS: Albuterol HFA INHALER 8 gm MDI INH PRN (03:43)
[2021-01-17 04:16] LABS: Hematocrit 30 % (35-47); Mean Corpuscular HGB Conc 33 g/dL (31-36); Mean Corpuscular Hemoglobin 31 pg (27-31); Mean Corpuscular Volume 93 fL (80-97); Mean Platelet Volume 14.2 fL (7.4-10.4); Platelet Count 87 10^3/uL (150-450); Red Blood Count 3.24 10^6 /uL (3.70-4.87); Red Cell Distribution Width 16 % (10-15)
[2021-01-17 04:28] LABS: Potassium 3.6 mmol/L (3.5-5.0)
[2021-01-17 04:33] LABS: Calcium 6.4 mg/dL (8.6-10.3)
[2021-01-17 04:33] LABS: PCO2 Arterial 44 mmHg (35-45); PO2 Arterial 83 mmHg (80-100)
[2021-01-17] MEDS ORDERED: Calcium Gluconate 4 GM in NS 0.9% 250 ml 250 ML IVPB ONE (05:00)
[2021-01-17] MEDS: Pantoprazole VIAL 40 MG VIAL IV SCH (07:53)
[2021-01-17] MEDS: Hydrocortisone INJ 100 MG/2ML 2 ML VIAL IV SCH (07:54)
[2021-01-17] MEDS: Levothyroxine 100 MCG/5 ML VIAL IV SCH (07:54)
[2021-01-17] MEDS ORDERED: Furosemide 40 mg/4 ml IV VIAL IV SLOW PU ONE ×3 (08:21→15:07)
[2021-01-17 10:44] LABS: C Reactive Protein 75.7 mg/L (<8.01)
[2021-01-17] MEDS ORDERED: Morphine 2 MG/ML SYRINGE ONE (13:16)
[2021-01-17] MEDS: cefTRIAXone 2 GM ADDV.VIAL 2 GM in NS 0.9% 100 ml BAG 100 ML IV SCH (15:22)
[2021-01-18] MEDS: Morphine 2 MG/ML SYRINGE IV PRN ×4 (03:29→20:05)
[2021-01-18] MEDS: Levothyroxine 100 MCG/5 ML VIAL IV SCH (06:30)
[2021-01-18 07:23] LABS: Calcium 6.5 mg/dL (8.6-10.3); Potassium 3.3 mmol/L (3.5-5.0)
[2021-01-18 07:26] LABS: Hematocrit 30 % (35-47); Hemoglobin 9.9 g/dL (12.0-16.0); Mean Corpuscular HGB Conc 33 g/dL (31-36); Mean Corpuscular Hemoglobin 31 pg (27-31); Mean Corpuscular Volume 93 fL (80-97); Red Blood Count 3.21 10^6 /uL (3.70-4.87); Red Cell Distribution Width 15 % (10-15); White Blood Count 52.9 10^3/uL (3.5-10.8)
[2021-01-18 07:45] LABS: Mean Platelet Volume 14.1 fL (7.4-10.4); Platelet Count 112 10^3/uL (150-450)
[2021-01-18] MEDS: KCL 20 MEQ/100 ML IVPREMIX 20 MEQ/100 ML BAG IV SCH ×2 (07:58→10:07)
[2021-01-18] MEDS: Pantoprazole VIAL 40 MG VIAL IV SCH (07:58)
[2021-01-18] MEDS: Hydrocortisone INJ 100 MG/2ML 2 ML VIAL IV SCH (07:58)
[2021-01-18 08:23] LABS: Magnesium 2.1 mg/dL (1.9-2.7)
[2021-01-18] MEDS ORDERED: Furosemide 40 mg/4 ml IV VIAL IV ONE (09:05)
[2021-01-18 13:15] LABS: Free Protein S Antigen 136 % (65 - 160)
[2021-01-18] MEDS ORDERED: Argatroban 250 MG in NS 0.9% 250 ml 247.5 ML IV SCH (14:00)
[2021-01-18] MEDS ORDERED: Morphine 2 MG/ML SYRINGE IM PRN (14:16)
[2021-01-18] MEDS: cefTRIAXone 2 GM ADDV.VIAL 2 GM in NS 0.9% 100 ml BAG 100 ML IV SCH (15:28)
[2021-01-18 16:07] LABS: Potassium 3.8 mmol/L (3.5-5.0)
[2021-01-18 16:09] LABS: Calcium 6.4 mg/dL (8.6-10.3)
[2021-01-18 16:22] LABS: DRVVT Screen Ratio 4.63 ratio (<1.20); LAC APTT 57 sec (25 - 37); LAC INR 2.3 (0.9-1.1); LAC PT Mix 1:1 18.1 sec (9.4 - 12.5); Prothrombin Time(LAC) 26.1 sec (9.4 - 12.5); Reptilase Time, P 25.5 sec; Thrombin Time (Bovine), P >300.0 sec
[2021-01-18 16:23] LABS: HIT ELISA 0.064 OD (<0.400); Heparin PF4 Antibody Interp Negative (Negative)
[2021-01-18] MEDS ORDERED: Calcium Gluconate 2 GM in NS 0.9% 100 ml BAG 100 ML IV ONE (16:58)
[2021-01-18 16:59] LABS: Fibrinogen, Clauss, P <25 mg/dL (200 - 500); PT-Fibrinogen, P 518 mg/dL (261 - 595)
[2021-01-18 17:16] LABS: Phospholipid Ab IgG < 9.4 GPL; Phospholipid Ab IgM, S < 9.4 MPL
[2021-01-18] MEDS: Senna TAB 8.6 mg TAB PO SCH (21:20)
[2021-01-19] MEDS: Morphine 2 MG/ML SYRINGE IV PRN ×3 (03:39→16:55)
[2021-01-19 04:22] LABS: Hematocrit 29 % (35-47); Hemoglobin 9.5 g/dL (12.0-16.0); Mean Corpuscular HGB Conc 33 g/dL (31-36); Mean Corpuscular Hemoglobin 30 pg (27-31); Mean Corpuscular Volume 91 fL (80-97); Mean Platelet Volume 13.7 fL (7.4-10.4); Platelet Count 137 10^3/uL (150-450); Red Blood Count 3.14 10^6 /uL (3.70-4.87); Red Cell Distribution Width 15 % (10-15); White Blood Count 46.4 10^3/uL (3.5-10.8)
[2021-01-19 04:40] LABS: Albumin 2.5 g/dL (3.2-5.2); Globulin 2.6 g/dL (2-4); Potassium 3.2 mmol/L (3.5-5.0); Total Bilirubin 0.6 mg/dL (0.2-1.0); Total Protein 5.1 g/dL (6.4-8.9)
[2021-01-19 04:41] LABS: Calcium 6.3 mg/dL (8.6-10.3)
[2021-01-19 04:43] LABS: Activated Partial Thrombo Time 56.8 seconds (26.0-38.0); INR 2.39 (0.86-1.15)
[2021-01-19] MEDS ORDERED: Calcium Gluconate 2 GM in NS 0.9% 100 ml BAG 100 ML IV ONE ×2 (05:00→20:59)
[2021-01-19] MEDS: Levothyroxine 100 MCG/5 ML VIAL IV SCH (05:03)
[2021-01-19] MEDS: Pantoprazole VIAL 40 MG VIAL IV SCH (07:23)
[2021-01-19] MEDS ORDERED: hydrALAZINE 20 mg/ml 1 ML Vial IV IV SLOW PU ONE (08:21)
[2021-01-19] MEDS ORDERED: Lorazepam PYXIS KEY PRN (08:22)
[2021-01-19 08:29] LABS: Magnesium 1.9 mg/dL (1.9-2.7)
[2021-01-19] MEDS: KCL 20 MEQ/100 ML IVPREMIX 20 MEQ/100 ML BAG IV SCH ×3 (08:45→13:31)
[2021-01-19] MEDS: LORazepam 2 mg VIAL 1 ml IV PUSH PRN (08:55)
[2021-01-19 11:23] LABS: PNH RBC Partial Antigen Loss 0.02 % (0.00-0.99)
[2021-01-19] MEDS: cefTRIAXone 2 GM ADDV.VIAL 2 GM in NS 0.9% 100 ml BAG 100 ML IV SCH (15:21)
[2021-01-19 20:33] LABS: Potassium 3.4 mmol/L (3.5-5.0)
[2021-01-19 20:44] LABS: Calcium 6.2 mg/dL (8.6-10.3)
[2021-01-19] MEDS: Senna TAB 8.6 mg TAB PO SCH (20:48)
[2021-01-20] MEDS: KCL 20 MEQ/100 ML IVPREMIX 20 MEQ/100 ML BAG IV SCH ×4 (01:05→16:51)
[2021-01-20] MEDS: LORazepam 2 mg VIAL 1 ml IV PUSH PRN (04:52)
[2021-01-20 06:36] LABS: Hematocrit 29 % (35-47); Hemoglobin 9.8 g/dL (12.0-16.0); Mean Corpuscular HGB Conc 34 g/dL (31-36); Mean Corpuscular Hemoglobin 31 pg (27-31); Mean Corpuscular Volume 92 fL (80-97); Mean Platelet Volume 13.3 fL (7.4-10.4); Platelet Count 153 10^3/uL (150-450); Red Blood Count 3.17 10^6 /uL (3.70-4.87); Red Cell Distribution Width 15 % (10-15); White Blood Count 32.6 10^3/uL (3.5-10.8)
[2021-01-20 06:51] LABS: Activated Partial Thrombo Time 61.8 seconds (26.0-38.0); INR 2.21 (0.86-1.15)
[2021-01-20] MEDS ORDERED: Venlafaxine XR 75 mg PO SCH (09:00)
[2021-01-20] MEDS: Levothyroxine 100 MCG/5 ML VIAL IV SCH (09:08)
[2021-01-20] MEDS: Pantoprazole VIAL 40 MG VIAL IV SCH (09:21)
[2021-01-20 10:05] LABS: Albumin 2.4 g/dL (3.2-5.2); Albumin/Globulin Ratio 0.9 (1-3); Calcium 6.5 mg/dL (8.6-10.3); Direct Bilirubin 0.2 mg/dL (0.03-0.18); Globulin 2.6 g/dL (2-4); Indirect Bilirubin 0.4 mg/dL (0.3-1.0); Potassium 3.6 mmol/L (3.5-5.0); Total Bilirubin 0.6 mg/dL (0.2-1.0)
[2021-01-20 10:38] LABS: Magnesium 1.7 mg/dL (1.9-2.7)
[2021-01-20] MEDS ORDERED: Magnesium Sulfate 2 gm BAG 2 GM/50 ML BAG IVPB ONE (11:48)
[2021-01-20] MEDS ORDERED: Alteplase (CATHFLO) 2 MG VIAL IV ONE (14:40)
[2021-01-20] MEDS: cefTRIAXone 2 GM ADDV.VIAL 2 GM in NS 0.9% 100 ml BAG 100 ML IV SCH (16:46)
[2021-01-20] MEDS: Senna TAB 8.6 mg TAB PO SCH (20:52)
[2021-01-21] MEDS ORDERED: Furosemide 40 mg/4 ml IV VIAL IV SLOW PU ONE (04:08)
[2021-01-21] MEDS: Morphine 2 MG/ML SYRINGE IV PRN (05:00)
[2021-01-21 08:15] VITALS: BP 134/56
[2021-01-21 09:23] LABS: Hematocrit 30 % (35-47); Mean Corpuscular HGB Conc 33 g/dL (31-36); Mean Corpuscular Hemoglobin 30 pg (27-31); Mean Corpuscular Volume 92 fL (80-97); Mean Platelet Volume 13.3 fL (7.4-10.4); Platelet Count 178 10^3/uL (150-450); Red Blood Count 3.29 10^6 /uL (3.70-4.87); Red Cell Distribution Width 15 % (10-15); White Blood Count 30.3 10^3/uL (3.5-10.8)
[2021-01-21 09:33] LABS: Activated Partial Thrombo Time 45.8 seconds (26.0-38.0); INR 1.83 (0.86-1.15)
[2021-01-21 09:39] LABS: Albumin 2.6 g/dL (3.2-5.2); Albumin/Globulin Ratio 0.9 (1-3); Magnesium 1.9 mg/dL (1.9-2.7); Potassium 3.4 mmol/L (3.5-5.0); Total Bilirubin 0.6 mg/dL (0.2-1.0); Total Protein 5.6 g/dL (6.4-8.9)
[2021-01-21 09:45] LABS: Calcium 6.4 mg/dL (8.6-10.3)
[2021-01-21 10:20] LABS: ABS Eosinophils 0.1 10^3/ul (0-0.6); ABS Lymphocytes 0.8 10^3/ul (1.0-4.8); ABS Monocytes 1.1 10^3/ul (0-0.8); ABS Neutrophils 28.3 10^3/ul (1.5-7.7); ABS Nucleated RBC 0.2 10^3/ul; Eosinophil % 0.2 %; Lymphocyte % 2.7 %; Nucleated Red Blood Cells % 0.7
[2021-01-21 22:13] LABS: Protein C Total Antigen 70 % (63-153)
== END 2021-01-21 09:30 | disposition expired | DRG 870 ==
LOC: ED 10:27 → ICU 17:28 → SUATTDRO 17:28 → MEDTELE 01-19 16:24
PROVIDERS: ADMIT Surgery Surgical Critical Care; ATTEND Internal Medicine